=== PATIENT | female | born 1950 | race Caucasian/White ===

== ENCOUNTER → 2017-06-14 | Outpatient (CLI) | payer OTHER ==
[~2017-06-14] MED LIST: ASPI81TA28 PO; DIPH25TA24 PO; ENAL10TA PO; IMD/2 PO; PXL/10 PO; SIMV-151 PO
--- NOTE | 2017-06-15 07:51 | MAMMOGRAPHY REPORT ---
BILATERAL DIGITAL SCREENING MAMMOGRAM TOMOSYNTHESIS WITH CAD: 06/14/2017 CLINICAL HISTORY: Routine screening. Patient has no complaints. TECHNIQUE: Breast tomosynthesis in addition to standard 2D mammography was performed. Current study was also evaluated with a Computer Aided Detection (CAD) system. COMPARISON: Comparison is made to exams dated: 06/13/2016 mammogram, 05/20/2015 mammogram, 04/01/2014 mammogram, 03/28/2013 mammogram, 03/22/2012 mammogram, and 03/21/2011 mammogram - [facility]. BREAST COMPOSITION: There are scattered areas of fibroglandular density in both breasts. FINDINGS: No suspicious masses, calcifications, or areas of architectural distortion are noted in ei ther breast. There has been no significant interval change compared to prior exams. Bilateral benign -appearing calcifications are stable compared to prior exams. IMPRESSION: ACR BI-RADS CATEGORY 2: BENIGN There is no mammographic evidence of malignancy. A 1 year screening mammogram is recommended. The pa tient will receive written notification of the results. Approximately 10% of breast cancers are not detected with mammography. A negative mammographic report should not delay biopsy if a clinically suggestive mass is present. Elyssa Morgan M.D. /:06/14/2017 13:10:41 Pot Puncher: Bryanna HONEYCUTT(Kathy)(Nuzhat)(ODILIA), [facility] letter sent: Normal 1/2 BI-RADS Code: ACR BI-RADS Category 2: Benign
== END | disposition home or self-care (01) ==
LOC: C.MAMM 12:41
PROVIDERS: ATTEND Internal Medicine
DX: Z12.31 Encounter for screening mammogram for malignant neoplasm of breast (principal)

== ENCOUNTER 2023-09-21 14:31 | Inpatient (IN) ==
--- NOTE | 2023-09-21 15:12 | Emergency Department Note ---
Impression & Plan Closed fracture of left hip ED Provider Note Name: NATALYA VAUGHN Age: 73 Sex: Female Arrives Via: Ambulance Informant: Patient ED Provider: Alton Lopez MD Chief Complaint: Left hip pain Impression: As per impressions above Medical Decision Making: Pleasant 73-year-old female arrives for evaluation of acute left hip pain after falling this morning. She did not strike her head and has had no headache or neck pain and she is not on any anticoagulants. NIH is 0 and she is neuro intact. She has significant tenderness palpation of the left lateral anterior thigh. Distal pulses sensation intact. No significant length discrepancy appreciated. Given IV Dilaudid and then some IV fentanyl for pain control. Hip x-ray does reveal femoral neck fracture. Laboratory workup unremarkable. She will need to be hospitalized for management of hip fracture. Hospitalist and orthopedic surgeon consulted. Triage/Nursing Notes reviewed by Me Differential:Fracture, dislocation, rhabdomyolysis, electrolyte imbalance, other injuries, nonmechanical fall, many other pathologies considered Vital Signs: reviewed and remarkable for no significant abnormalities Interventions: Dilaudid 1 mg IV, fentanyl 75 mcg IV, normal saline infusion Labs:ED labs Reviewed by me and remarkable for no significant abnormalities Imaging: X-ray of the left femur as per my interpretation reveals compressed femoral neck fracture mild displacement. X-ray of the pelvis as per my interpretation reveals compressed femoral neck fracture on left X-ray of the chest as per my interpretation reveals some chronic lung disease no overt infiltrate or effusion. Consults:Dr [facility] aware. Dr Je Estrada hospitalist Plan: Disposition: Hospitalization Condition: Good History of Present Illness: 73-year-old female arrives for evaluation of left hip pain. Patient notes she stood up this morning fell over and landed awkwardly. Did not strike her head or neck. She has no neck or headache. Patient does note though that she has left hip pain and left upper thigh pain. Unable to bear weight or lift her legs so she has been crawling around the house this morning. Eventually was able to get to the phone call 911. EMS arrived and placed her in traction and then gave her 8 mg IM morphine. She notes this helped mildly. Oxygen was below after the morphine is put on some nasal cannula O2. Patient states that the pain is essentially returned and she is in a fair amount of discomfort. Denies any lower leg pain. She has no back pain chest pain abdominal pain, syncope or other concerning signs or symptoms. She takes 81 mg aspirin daily no other blood thinners. Patient has no history of bleeding issues. She has no previous history of fractures. Past Medical History: Hypertension, anxiety/depression, dyslipidemia Home Medications:See Below Allergies: No known drug allergy Vitals:Blood Pressure: 166/90, Pulse 88, RR 18, T 36.4C, O2 98% on RA Physical Exam: GENERAL: Patient is uncomfortable appearing and in moderate distress. RESPIRATORY: No dyspnea. Clear to auscultation and equal bilaterally. CARDIOVASCULAR: Regular rate and rhythm.No murmur appreciated. GASTROINTESTINAL: Abdomen soft, non-tender, no peritonitis. EXTREMITIES: Significant tenderness palpation of the left upper thigh with severe pain on range of motion of the left hip or the knee. Distal pulses sensation and movement intact NEUROLOGIC: Alert and oriented. No focal neurologic deficits appreciated SKIN: No rash, no jaundice, no diaphoresis. PSYCH: Appropriate GCS: 15 ED Course: Times/Reassessments: Some difficulty controlling pain but patient is otherwise stable Alton Lopez MD Past Med/Surg History Social History Smoking Status: Never smoker Allergies Allergies Allergy/AdvReac Type Severity Reaction Status Date / Time No Known Allergies Allergy Unknown Verified 06/11/04 09:11 Home Meds Home Medications Medication Instructions Recorded Confirmed aspirin 81 mg capsule 81 mg PO DAILY 09/21/23 09/21/23 atorvastatin 20 mg tablet 20 mg PO DAILY 09/21/23 09/21/23 cholecalciferol (vitamin D3) 25 25 mcg PO DAILY 09/21/23 09/21/23 mcg (1,000 unit) tablet enalapril maleate 5 mg tablet 5 mg PO DAILY 09/21/23 09/21/23 hydrochlorothiazide 12.5 mg tablet 12.5 mg PO DAILY 09/21/23 09/21/23 lorazepam 0.5 mg tablet 0.5 mg PO TID PRN Anxiety 09/21/23 09/21/23 paroxetine HCl 10 mg tablet 10 mg PO DAILY 09/21/23 09/21/23 tolterodine 4 mg capsule,extended 4 mg PO DAILY 09/21/23 09/21/23 release 24 hr Results & Data (ED) Vital Signs Vital Signs - 24 hr 09/21/23 14:35 09/21/23 14:40 09/21/23 15:03 Temperature 36.4 C L Temperature Source Oral Pulse Rate 89 88 Respiratory Rate 18 Respiratory Effort / Characteristics Non-Labored Spontaneous Respiratory Depth Normal Respiratory Pattern Agonal Blood Pressure 166/90 H Blood Pressure Mean 115 Blood Pressure Position Sitting Pulse Oximetry 87 L 87 L Oxygen Delivery Method Room Air Room Air Oxygen Flow Rate Sepsis Recent Fever Within 48 Hours No Sepsis New/Unexplained Change in Mental Status N/A Sepsis Action Taken by Nursing No Action Required Oxygen Flow Rate - Titration 2 Pulse Oximetry Post Tiitration 94 09/21/23 15:20 09/21/23 16:14 09/21/23 16:30 Temperature Temperature Source Pulse Rate 86 87 83 Respiratory Rate 24 14 12 Respiratory Effort / Characteristics Respiratory Depth Respiratory Pattern Blood Pressure 155/88 H 144/82 H 148/81 H Blood Pressure Mean 110 102 103 Blood Pressure Position Pulse Oximetry 95 93 96 Oxygen Delivery Method Nasal Cannula Room Air Nasal Cannula Oxygen Flow Rate 2 2 Sepsis Recent Fever Within 48 Hours Sepsis New/Unexplained Change in Mental Status Sepsis Action Taken by Nursing Oxygen Flow Rate - Titration Pulse Oximetry Post Tiitration 09/21/23 17:00 Temperature Temperature Source Pulse Rate 85 Respiratory Rate 15 Respiratory Effort / Characteristics Respiratory Depth Respiratory Pattern Blood Pressure 119/64 Blood Pressure Mean 82 Blood Pressure Position Pulse Oximetry 96 Oxygen Delivery Method Nasal Cannula Oxygen Flow Rate 2 Sepsis Recent Fever Within 48 Hours Sepsis New/Unexplained Change in Mental Status Sepsis Action Taken by Nursing Oxygen Flow Rate - Titration Pulse Oximetry Post Tiitration Laboratory Data 09/21/23 15:35 09/21/23 15:35 Lab Results 09/21/23 09/21/23 Range/Units 15:35 16:45 WBC 15.68 H (4.8-10.8) K/ul RBC 5.07 (4.20-5.40) M/uL Hgb 15.2 (12.0-16.0) g/dl Hct 44.2 (37.0-47.0) % MCV 87.2 (80.0-100.0) fL MCH 30.0 (25.0-34.0) pg MCHC 34.4 (32.0-36.0) g/dL RDW Std Deviation 43.1 (36.4-46.3) fL RDW Coeff of Erlinda 13.4 (11.5-14.5) % Plt Count 225 (130-400) K/uL MPV 9.0 L (9.4-12.4) fL Immature Gran % (Auto) 0.5 % Neut % (Auto) 90.1 % Lymph % (Auto) 4.0 % [place] % (Auto) 4.8 % Eos % (Auto) 0.3 % Baso % (Auto) 0.3 % Neut # (Auto) 14.14 H (1.40-6.50) K/uL Lymph # (Auto) 0.63 L (1.20-3.40) K/uL [place] # (Auto) 0.75 H (0.11-0.59) K/uL Eos # (Auto) 0.04 (0.00-0.50) K/uL Baso # (Auto) 0.04 (0.00-0.20) K/uL Immature Gran # (Auto) 0.08 (0.01-0.20) K/uL Sodium 138 (136-145) mmol/L Potassium 4.1 (3.5-5.1) mmol/L Chloride 105 (98-107) mmol/L Carbon Dioxide 26 (21-32) mmol/L Anion Gap 7 (3-11) BUN 20 (6-23) mg/dl Creatinine 0.81 (0.6-1.2) mg/dl Est Cr Clr Drug Dosing 62.2 ml/min Est GFR ( Amer) 82.3 ml/min Est GFR (Non-Af Amer) 71.0 ml/min BUN/Creatinine Ratio 24.7 H (10-20) Glucose 125 H (70-99(Fasting)) mg/dl Calcium 9.6 (8.6-10.3) mg/dl Magnesium 2.0 (1.7-2.4) mg/dl Total Creatine Kinase 193 H (26-192) U/L Urine Color Dark Yellow Urine Appearance Clear (Clear) Urine pH 5.0 (4.5-7.5) Ur Specific [place] 1.027 (1.000-1.030) Urine Protein Negative (Negative) Urine Glucose (UA) Negative (Negative) Urine Ketones Negative (Negative) Urine Blood Negative (Negative) Urine Nitrite Negative (Negative) Urine Bilirubin Negative (Negative) Urine Urobilinogen Negative (Negative) Ur Leukocyte Esterase Negative (Negative) Administered Medications Discontinued Medications Fentanyl Citrate (Fentanyl Citrate Pf 100 Mcg/2 Ml Vial) 75 mcg IV NOW STA Stop: 09/21/23 16:24 Last Admin: 09/21/23 16:26 Dose: 75 mcg Documented By: MELINA Hydromorphone HCl (Hydromorphone Inj 1 Mg/Ml Syringe) 1 mg IV NOW STA Stop: 09/21/23 15:10 Last Admin: 09/21/23 15:16 Dose: 1 mg Documented By: CRISTINA Sodium Chloride (Nss) 500 mls @ 999 mls/hr IV .Q31M ONE Stop: 09/21/23 15:39 Last Infusion: 09/21/23 16:48 Dose: Infused Documented By: Admin: 09/21/23 15:17 Dose: 999 mls/hr Documented By: CRISTINA Imaging Data Radiologist's Impression: Chest X-Ray 09/21/23 15:09 SINGLE VIEW CHEST CLINICAL HISTORY: Fall. FINDINGS: An AP supine chest radiograph is obtained. No prior studies are available for comparison at the time of dictation. The heart is enlarged and noting atherosclerotic calcification of the thoracic aorta. The pulmonary vasculature is noncongested. The lungs and pleural spaces are clear. No pneumothorax is seen. The skeletal structures are osteopenic. The bony thorax is grossly intact. IMPRESSION: Cardiomegaly with no active disease in the chest. ACT 112: Negative or not required by law. Electronically signed by: Juan Andersen M.D. 09/21/2023 4:42 PM Femur X-Ray 09/21/23 15:09 XR femur LT 2V routine CLINICAL HISTORY: left femur pain COMPARISON: None FINDINGS: There is an acute displaced left femoral neck fracture. No distal left femoral fracture is noted. No acute fractures are identified within visualized portions of the left hemipelvis. 3.2 cm lucent focus within the femoral head/neck junction. IMPRESSION: 1. Acute displaced left femoral neck fracture. 2. Ill-defined lucent focus within the left femoral head/neck junction. This is likely artifactual or related to the fracture. An underlying osseous lesion cannot be completely excluded. ACT 112: Negative or not required by law. Electronically signed by: Blade Ramos M.D. 09/21/2023 4:22 PM Pelvis X-Ray 09/21/23 15:09 XR pelvis 1-2V routine CLINICAL HISTORY: left hip injury COMPARISON: None FINDINGS: Sacroiliac joints and symphysis pubis are intact. There is acute displaced left femoral neck fracture. There is an ill-defined 3.5 cm lucent focus within the left femoral head/neck junction. This is probably artifactual. No additional lesions are present. There is no proximal right femoral fracture. IMPRESSION: 1. Acute displaced left femoral neck fracture. 2. 3.5 cm ill-defined lucent focus within the left femoral head/neck junction. This is likely artifactual or related to the fracture. However, an underlying osseous lesion cannot be completely excluded. ACT 112: Negative or not required by law. Electronically signed by: Blade Ramos M.D. 09/21/2023 4:21 PM Discharge Plan Visit Data Chief Complaint: Fall Stated Complaint: femur fracture ED Provider: Alton Lopez Discharge Problem: Closed fracture of left hip Forms Stand Alone Forms: My [facility] [place] [employer] Prescriptions Prescriptions: No Action paroxetine HCl 10 mg tablet 10 mg PO DAILY atorvastatin 20 mg Tablet 20 mg PO DAILY enalapril maleate 5 mg Tablet 5 mg PO DAILY tolterodine 4 mg Capsule,Extended Release 24hr 4 mg PO DAILY lorazepam 0.5 mg Tablet 0.5 mg PO TID PRN (Reason: Anxiety) cholecalciferol (vitamin D3) 25 mcg (1,000 unit) Tablet 25 mcg PO DAILY hydrochlorothiazide 12.5 mg tablet 12.5 mg PO DAILY aspirin 81 mg Capsule 81 mg PO DAILY Referrals Referrals: Nadira Ball MD [Primary Care Provider] - Discharge Problem: Closed fracture of left hip Qualifiers: Encounter type: initial encounter Qualified Code(s): S72.002A - Fracture of unspecified part of neck of left femur, initial encounter for closed fracture
[2023-09-21] MEDS: HYDROmorphone INJ 1 MG/ML SYRINGE IV STA (15:16)
[2023-09-21] MEDS: SODIUM CHLORIDE 0.9% 500 ML IV ONE (15:17)
[2023-09-21 15:53] LABS: Hematocrit (blood only) 44.2 % (37.0-47.0); Hemoglobin 15.2 g/dl (12.0-16.0); Mean Corpuscular Hgb Conc 34.4 g/dL (32.0-36.0); Mean Corpuscular Volume 87.2 fL (80.0-100.0); Platelet Count 225 K/uL (130-400); RDW Coefficient of Variation 13.4 % (11.5-14.5); RDW Standard Deviation 43.1 fL (36.4-46.3); Red Blood Count 5.07 M/uL (4.20-5.40); White Blood Count 15.68 K/ul (4.8-10.8)
[2023-09-21 16:06] LABS: BUN Creatinine Ratio 24.7 (10-20); Calcium 9.6 mg/dl (8.6-10.3); Creatinine Clr Calc Pharmacy 62.2 ml/min; Est GFR (African American) 82.3 ml/min; Potassium 4.1 mmol/L (3.5-5.1)
--- NOTE | 2023-09-21 16:23 | XRay Report ---
XR pelvis 1-2V routine CLINICAL HISTORY: left hip injury COMPARISON: None FINDINGS: Sacroiliac joints and symphysis pubis are intact. There is acute displaced left femoral ne ck fracture. There is an ill-defined 3.5 cm lucent focus within the left femoral head/neck junction. This is probably artifactual. No additional lesions are present. There is no proximal right femoral f racture. IMPRESSION: 1. Acute displaced left femoral neck fracture. 2. 3.5 cm ill-defined lucent focus within the left femoral head/neck junction. This is likely artifac tual or related to the fracture. However, an underlying osseous lesion cannot be completely excluded. ACT 112: Negative or not required by law. Electronically signed by: Blade Ramos M.D. 09/21/2023 4:21 PM
--- NOTE | 2023-09-21 16:23 | XRay Report ---
XR femur LT 2V routine CLINICAL HISTORY: left femur pain COMPARISON: None FINDINGS: There is an acute displaced left femoral neck fracture. No distal left femoral fracture is noted. No acute fractures are identified within visualized portions of the left hemipelvis. 3.2 cm l ucent focus within the femoral head/neck junction. IMPRESSION: 1. Acute displaced left femoral neck fracture. 2. Ill-defined lucent focus within the left femoral head/neck junction. This is likely artifactual or related to the fracture. An underlying osseous lesion cannot be completely excluded. ACT 112: Negative or not required by law. Electronically signed by: Blade Ramos M.D. 09/21/2023 4:22 PM
[2023-09-21] MEDS: fentaNYL citrate PF 100 MCG/2 ML VIAL IV STA (16:26)
[2023-09-21 16:31] LABS: Basophils # (auto) 0.04 K/uL (0.00-0.20); Basophils % (auto) 0.3 %; Eosinophils # (auto) 0.04 K/uL (0.00-0.50); Eosinophils % (auto) 0.3 %; Immature Granulocytes # (auto) 0.08 K/uL (0.01-0.20); Immature Granulocytes % (auto) 0.5 %; Lymphocytes # (auto) 0.63 K/uL (1.20-3.40); Monocytes # (auto) 0.75 K/uL (0.11-0.59); Monocytes % (auto) 4.8 %; Neutrophils # (auto) 14.14 K/uL (1.40-6.50); Neutrophils % (auto) 90.1 %
--- NOTE | 2023-09-21 16:43 | XRay Report ---
SINGLE VIEW CHEST CLINICAL HISTORY: Fall. FINDINGS: An AP supine chest radiograph is obtained. No prior studies are available for comparison at the time of dictation. The heart is enlarged and noting atherosclerotic calcification of the thoraci c aorta. The pulmonary vasculature is noncongested. The lungs and pleural spaces are clear. No pneumo thorax is seen. The skeletal structures are osteopenic. The bony thorax is grossly intact. IMPRESSION: Cardiomegaly with no active disease in the chest. ACT 112: Negative or not required by law. Electronically signed by: Juan Andersen M.D. 09/21/2023 4:42 PM
--- NOTE | 2023-09-21 16:58 | History & Physical Report ---
Date of Service September 21, 2023 Assessment & Plan (1) Closed fracture of left hip: Plan: This is a 73-year-old female with PMH of hypertension, depression with anxiety, hyperlipidemia, hypothyroidism, prediabetes and other medical problems listed below who presents from home after a fall and was found to have an acute displaced left femoral neck fracture. Mechanical fall at home today Femur XR with acute displaced left femoral neck fracture EKG with sinus rhythm with occasional PVCs, non- specific T wave abn in lateral leads, no acute ST changes CXR with cardiomegaly with no active disease in the chest ED provider discussed with Dr. Johns, who plans to take patient to OR tomorrow Revised cardiac risk index with 0 points or class 1 risk IV fluids, pain control, pre-op abx, anesthesia and ortho spine consulted per hip fracture protocol (2) HTN (hypertension): Plan: Chronic, stable. Hold HCTZ in AM. Continue enalapril (3) Depression with anxiety: Plan: Chronic, stable. Continue paroxetine, rarely uses her home PRN ativan (4) Hyperlipidemia: Plan: Continue statin (5) Hypothyroidism: Plan: Continue levothyroxine DVT Ppx: SQ heparin x 1 this evening, then hold on chemical VTE for OR Code status:FULL PCP: Hollie Dispo: Admitted to med/surg Patient seen in collaboration with Dr. Wooten. Please see addendum. I spent a total of 70 minutes coordinating, documenting, and providing care for this patient excluding time spent in the performance of separately billed services. History of Present Illness Chief Complaint: Fall Primary Care Provider: Nadira Ball MD This is a 73-year-old female with PMH of hypertension, depression with anxiety, hyperlipidemia, hypothyroidism, prediabetes and other medical problems listed below who presents from home after a fall. After standing up this morning, patient fell over and landed on her left side. Denies any head trauma or LOC. Was unable to bear weight on her leg and resorted to crawling around on the floor. Then alerted her and arrived here by EMS. Was initially in a lot of pain but improved with IV analgesics in the ED and is now comfortable at rest. Denies any history of bleeding issues. Denies previous history of f ractures. Allergies Allergy/AdvReac Type Severity Reaction Status Date / Time No Known Allergies Allergy Unknown Verified 06/11/04 09:11 Home Medications Medication Instructions Recorded Confirmed Type aspirin 81 mg capsule 81 mg PO DAILY 09/21/23 09/21/23 History atorvastatin 20 mg tablet 20 mg PO DAILY 09/21/23 09/21/23 History cholecalciferol (vitamin D3) 25 25 mcg PO DAILY 09/21/23 09/21/23 History mcg (1,000 unit) tablet enalapril maleate 5 mg tablet 5 mg PO DAILY 09/21/23 09/21/23 History hydrochlorothiazide 12.5 mg tablet 12.5 mg PO DAILY 09/21/23 09/21/23 History lorazepam 0.5 mg tablet 0.5 mg PO TID PRN Anxiety 09/21/23 09/21/23 History paroxetine HCl 10 mg tablet 10 mg PO DAILY 09/21/23 09/21/23 History tolterodine 4 mg capsule,extended 4 mg PO DAILY 09/21/23 09/21/23 History release 24 hr Past Med/Surg History Medical History Hypothyroidism Depression with anxiety HTN (hypertension) Hyperlipidemia Surgical History S/P ear surgery S/P tonsillectomy and adenoidectomy Hx of appendectomy Family History Other Cancer Diabetes Stroke Social History Smoking Status: Never smoker Hx Alcohol Use: No Hx Substance Use: No Review of Systems Review of Systems: At least ten systems reviewed and negative except as noted in the HPI. Physical Exam Physical Exam: Please see Dr. Wooten's addendum for physical exam. Results & Data Results & Data Vital Signs (Past 12 Hours) Vital Signs Temp Pulse Resp BP Pulse Ox O2 Del Method O2 Flow Rate 09/21/23 16:14 87 14 144/82 H 93 Room Air 09/21/23 15:20 86 24 155/88 H 95 Nasal Cannula 2 09/21/23 15:03 88 09/21/23 14:40 87 L Room Air 09/21/23 14:35 36.4 C L 89 18 166/90 H 87 L Room Air Laboratory Results Short CBC 09/21/23 Range/Units 15:35 WBC 15.68 H (4.8-10.8) K/ul Hgb 15.2 (12.0-16.0) g/dl Hct 44.2 (37.0-47.0) % Plt Count 225 (130-400) K/uL BMP 09/21/23 15:35 Sodium 138 Potassium 4.1 Chloride 105 Carbon Dioxide 26 BUN 20 Creatinine 0.81 Glucose 125 H Calcium 9.6 Cardiac Enzymes 09/21/23 Range/Units 15:35 Total Creatine Kinase 193 H (26-192) U/L Urine 09/21/23 Range/Units 16:45 Urine Color Dark Yellow Urine Appearance Clear (Clear) Urine pH 5.0 (4.5-7.5) Ur Specific [place] 1.027 (1.000-1.030) Urine Protein Negative (Negative) Urine Glucose (UA) Negative (Negative) Diagnostic Findings Chest X-Ray 09/21/23 15:09 SINGLE VIEW CHEST CLINICAL HISTORY: Fall. FINDINGS: An AP supine chest radiograph is obtained. No prior studies are available for comparison at the time of dictation. The heart is enlarged and noting atherosclerotic calcification of the thoracic aorta. The pulmonary vasculature is noncongested. The lungs and pleural spaces are clear. No pneumothorax is seen. The skeletal structures are osteopenic. The bony thorax is grossly intact. IMPRESSION: Cardiomegaly with no active disease in the chest. ACT 112: Negative or not required by law. Electronically signed by: Juan Andersen M.D. 09/21/2023 4:42 PM Femur X-Ray 09/21/23 15:09 XR femur LT 2V routine CLINICAL HISTORY: left femur pain COMPARISON: None FINDINGS: There is an acute displaced left femoral neck fracture. No distal left femoral fracture is noted. No acute fractures are identified within visua lized portions of the left hemipelvis. 3.2 cm lucent focus within the femoral head/neck junction. IMPRESSION: 1. Acute displaced left femoral neck fracture. 2. Ill-defined lucent focus within the left femoral head/neck junction. This is likely artifactual or related to the fracture. An underlying osseous lesion cannot be completely excluded. ACT 112: Negative or not required by law. Electronically signed by: Blade Ramos M.D. 09/21/2023 4:22 PM Pelvis X-Ray 09/21/23 15:09 XR pelvis 1-2V routine CLINICAL HISTORY: left hip injury COMPARISON: None FINDINGS: Sacroiliac joints and symphysis pubis are intact. There is acute displaced left femoral neck fracture. There is an ill-defined 3.5 cm lucent focus within the left femoral head/neck junction. This is probably artifactual. No additional lesions are present. There is no proximal right femoral fracture. IMPRESSION: 1. Acute displaced left femoral neck fracture. 2. 3.5 cm ill-defined lucent focus within the left femoral head/neck junction. This is likely artifactual or related to the fracture. However, an underlying osseous lesion cannot be completely excluded. ACT 112: Negative or not required by law. Electronically signed by: Blade Ramos M.D. 09/21/2023 4:21 PM ECG Additional Comments: EKG reviewed - sinus rhythm with occasional PVCs, non- specific T wave abn in lateral leads, no acute ST changes Supervising Physician Co-Signing Physician Notes Patient is a 73-year-old female with history of hypertension, hyperlipidemia, hypothyroidism and other medical problems presents with left hip pain after sustaining a fall at home. Patient denies any weakness, numbness or tingling. She also denies any head trauma, loss of consciousness. She reports having a neck spasm, and was trying to get out of the chair and slipped resulting in a fall on the floor. Please review HPI for complete liters of presentation. Blood work showed leukocytosis 15.6 K, glucose 125, CK1 93. Imaging studies showed acute displaced left femoral neck fracture. EKG showed sinus rhythm with PVCs, nonspecific T wave abnormality. Physical Exam: Vitals signs as noted above General Appearance:Obese, no apparent distress Head: normocephalic, Atraumatic Eyes: normal inspection, EOMI Neck: supple, Trachea midline Respiratory/Chest: Normal breath sounds, CTA, No accessory muscle use Cardiovascular: S1, S2, No murmur Abdomen/GI:Soft, Non tender, Bowel sounds present Extremities/Musculoskeletal:normal inspection, no edema, Left hip tender, decreased ROM Neurologic/Psych:AAOX3, grossly no focal neurological deficits Skin: normal color, warm Acute displaced left femoral neck fracture Secondary to mechanical fall Pain control, fall precautions Orthopedics consulted N.p.o. after midnight for possible procedure tomorrow Will consult PT OT when appropriate Bowel regimen to prevent constipation Leukocytosis likely reactive I personally interviewed and examined at bedside. Patient's care is coordinated with Lois Johns PA-C. I have reviewed the advanced practitioner's documentation, and I agree with, and take responsibility for that plan of care. Please refer to the documentation above for details of patient's presentation and for discussion of other issues. I spent a total of28 minutes coordinating, documenting, and providing care for this patient excluding time spent in the per formance of separately billed services. (1) Closed fracture of left hip Encounter type: initial encounter Qualified Code(s): S72.002A - Fracture of unspecified part of neck of left femur, initial encounter for closed fracture
[2023-09-21 17:06] LABS: Appearance Urine Clear (Clear); Bilirubin Urine Negative (Negative); Blood Urine Negative (Negative); Color Urine Dark Yellow; Glucose Urine UA Negative (Negative); Ketones Urine Negative (Negative); Leukocyte Esterase Urine Negative (Negative); Nitrite Urine Negative (Negative); Protein Urine Negative (Negative); Specific Gravity Urine 1.027 (1.000-1.030); Urobilinogen Urine Negative (Negative)
[2023-09-21] MEDS: SODIUM CHLORIDE 0.9% 1,000 ML IV SCH (18:11)
[2023-09-21] MEDS ORDERED: ONDANSETRON INJ 2 MG/ML 2 ML VIAL IV PRN ×2 (20:39)
[2023-09-21] MEDS ORDERED: NALOXONE HCL 0.4 MG/1 ML VIAL/CARP IV PRN (20:39)
[2023-09-21] MEDS ORDERED: ACETAMINOPHEN 325 MG TAB PO PRN (20:39)
[2023-09-21] MEDS ORDERED: TRANEXAMIC ACID IV ONE (20:40)
[2023-09-21] MEDS ORDERED: SODIUM CHLORIDE 0.9% IV ONE (20:40)
[2023-09-21] MEDS ORDERED: ceFAZolin 2000MG 2,000 MG/15 ML SYR IV ONE (20:40)
[2023-09-21] MEDS: HEPARIN SOD 5,000 UNIT/0.5 ML VIAL SQ ONE (21:09)
[2023-09-21] MEDS: oxyCODONE HCL IR 5 MG TAB (IMMEDIATE RELEASE) PO PRN (21:36)
[2023-09-21] MEDS: LORazepam 0.5 MG TAB PO PRN (21:36)
[2023-09-21] MEDS: HYDROmorphone INJ 0.5 MG/0.5 ML SYR IV PRN (22:27)
[2023-09-22 06:42] LABS: Hematocrit (blood only) 38.2 % (37.0-47.0); Hemoglobin 12.5 g/dl (12.0-16.0); Mean Corpuscular Hemoglobin 29.9 pg (25.0-34.0); Mean Corpuscular Hgb Conc 32.7 g/dL (32.0-36.0); Mean Corpuscular Volume 91.4 fL (80.0-100.0); Mean Platelet Volume 9.4 fL (9.4-12.4); Platelet Count 195 K/uL (130-400); RDW Coefficient of Variation 13.8 % (11.5-14.5); RDW Standard Deviation 46.6 fL (36.4-46.3); Red Blood Count 4.18 M/uL (4.20-5.40); White Blood Count 12.38 K/ul (4.8-10.8)
--- OUTSIDE RECORDS SUMMARY | 2023-09-22 06:50 | External Medical Summary | Summary of Care ---
Author Name Unknown Organization [facility] Address [address] [facility] [place] [address] Phone [phone] Care Team Providers Care Addictions Counselor Assistant Name Role Phone Salomon Ball MD Primary Care Provider + Reason for Visit * Reason Comments Follow Up Pt here for 1 month f/u for arms. Pt is using ointment prescribed and feels it is working well. Encounter Details Date Type Department Care Team ([facility] st Contact Info) Description 09/19/2023 4:20 PM EST Office Visit Dermatology [address] [address] Bib Pena PA-C [address] [place] [id number] Dermatitis*; LSC (lichen simplex chronicus); Pruritus Allergies No known active allergiesdocumented as of this encounter (statuses as of 09/19/2023) Medications Medication Sig Dispensed Refills Start Date End Date Status LORAZEPAM 0.5 MG PO TABSIndications: Depressive disorder, not elsewhere classified One pill by mouth 3 times a day as needed for anxiety 90 0 08/28/2008 Active ASPIRIN EC 81 MG PO TBEC Take one pill daily 100 Tab 3 02/24/2014 Active Cholecalciferol (VITAMIN D) 1000 units Tablet Take 1 Tablet by mouth in the morning. 0 Active fluorouracil (EFUDEX) 5 % creamIndications :Actinic keratosis,[place] us cell carcinoma in situ Start 03/19/20: apply 2x daily to entire tops of hands until derm appointment on 04/09/20 7:20am 40 g 1 03/12/2020 Active Additional Information Patient not taking.Reported on 01/11/2023 Tolterodine Tartrate ER 4 MG Oral Capsule Extended Release 24 Hour (Detrol LA)Indications:U rinary incontinence, unspecified type Take 1 Capsule by mouth in the morning. 30 Capsule 0 08/11/2022 Active Atorvastatin Calcium 20 MG Oral Tablet (Lipitor)Indicat ions:Hyperlipide leah LDL goal <130 TAKE ONE TABLET BY MOUTH EVERY MORNING 100 Tablet 2 09/28/2022 4 Active PARoxetine HCl 10 MG Oral Tablet (pAXil)Indicatio ns:Depression with anxiety TAKE ONE TABLET BY MOUTH EVERY MORNING 100 Tablet 2 09/28/2022 4 Active Enalapril Maleate 5 MG Oral Tablet (Vasotec) Take 1 Tablet by mouth in the morning. With HCTZ. 90 Tablet 1 05/02/2023 Active hydroCHLOROthiaz xi 12.5 MG Oral Tablet (Hydrodiuril) Take 1 Tablet by mouth in the morning. With enalapril. 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 Depression with anxiety Hyperlipidemia LDL goal <130 documented as of this encounter (statuses as of 09/19/2023) Resolved Problems Problem Noted Date Diagnosed Date Resolved Date HTN, GOAL BELOW 140/90 06/24/200903/29 Overview: Modified per HTN protocol #16. HTN, goal below 140/90 06/24/200904/06 Overview: Modified per HTN protocol #16. Tension headache 07/06/2006 04/06/2017 ROTATOR CUFF SYND NOS 01/09/20042016 HYPERTENSION NOS 06/25/2009 Overview: Modified per HTN protocol #16. Anxiety states 02/24/2014 Overview: ICD-10 update of inactive term Anxiety states 09/29/2016 Overview: ICD-10 update of inactive term Major depressive disorder Overview: ICD-10 update of inactive term HTN, goal to be determined 1 08/25/2008 Overview: Modified per HTN protocol #16. Dyslipidemia, goal to be determined 08/16/2013 Hypothyroid 09/29/2016 HTN, goal below 140/80 08/16 HTN, goal below 140/90 04/06 documented as of this encounter (statuses as of 09/19/2023) Immunizations Name Administration Dates Next Due COVID-19 mRNA, LNP-s, No Pre serve, 2-Dose Series (Pfizer) 06/10/2021,10/15/2020,09/17/2020 Pneumococcal Conjugate Vacc, 13 Valent (Prevnar) 03/24/2016 Pneumococcal Polysaccharide PPV23 (Pneumovax) 08/16/2013,01/03/2006 TDAP (age 10 and older)(Boostrix) 11/04/2021 TDAP (age 11 and older)(Adacel) 12/30/2010 12/30/2020 Zoster Vaccine Recombinant (Shingrix) 04/22/2021 ,02/10/2021 documented as of this encounter Social History Tobacco Use Types Packs/Day Years Used Date Smoking Tobacco: Never Smokeless Tobacco: Never Alcohol Use Standard Drinks/Week Comments No 0 (1 standard drink = 0.6 oz pur e alcohol) PHQ-2 Answer Date Recorded PHQ-2 Score 0 01/31/2020 Hunger Vital Sign Answer Date Recorded Within the past 12 months, y ou worried that your food would run out before you got the money to buy more. Never true 08/13/19 21 Within the past 12 months, t he food you bought just didn't last and you didn't have money to get more. Never true 08/13/2020 Sex and Gender Information Value Date Recorded Sex Assigned at Female 04/18/2019 12:41 PM EDT Gender Identity Female 04/18/2019 12:41 PM EDT Sexual Orientation Straight 12/03/2021 5: 56 PM EDT Sexual Orientation Choose not to disclose 2021 5:56 PM EDT Job Start Date Occupation Industry Not on file Not on file Not on file documented as of this encounter Progress Notes * Bib Pena PA-C - 09/19/2023 4:16 PM EST SUBJECTIVE: History of Present Illness: Marissa Lewis is a 73 year old female seen today for follow up of neurodermatitis/lichen simplex chronicus. Patient notes the itching has improved, but continues to flare off and on. Worse at night. Itching can be all over her body. Taking benadryl at bedtime. Does not like the consistency of c lobetasol ointment. 08/22/2023 (in office) REVIEW OF SYSTEMS: SKIN: No other new or changing moles. HEME/LYMPH: No new or enlarging lumps or bumps. CONSTITUTIONAL: No nausea, vomiting, fevers, chills, diarrhea. No recent unintended weight loss, night sweats, appetite or malaise. SKIN CANCER HX: Squamous cell carcinoma in situ (Efudex R dorsal hand 03/2020) MEDICA TIONS: Current Outpatient Medications Medication Sig Dispense Refill LORAZEPAM 0.5 MG PO TABS One pill by mouth 3 times a day as needed for anxiety 90 0 ASPIRIN EC 81 MG PO TBEC Take one pill daily 100 Tab 3 Cholecalciferol (VITAMIN D) 1000 units Tablet Take 1 Tablet by mouth in the morning. fluorouracil (EFUDEX) 5 % cream Start 03/19/20: apply 2x daily to entire tops of hands until derm appointment on 04/09/20 7:20am (Patient not taking: Reported on 01/11/2023) 40 g 1 Tolterodine Tartrate ER 4 MG Oral Capsule Extended Release 24 Hour (Detrol LA) Take 1 Capsule by mouth in the morning. 30 Capsule 0 Atorvastatin Calcium 20 MG Oral Tablet (Lipitor) TAKE ONE TABLET BY MOUTH EVERY MORNING 100 Tablet 2 PARoxetine HCl 10 MG Oral Tablet (pAXil) TAKE ONE TABLET BY MOUTH EVERY MORNING 100 Tablet 2 Enalapril Maleate 5 MG Oral Tablet (Vasotec) Take 1 Tablet by mouth in the morning. With HCTZ. 90 Tablet 1 hydroCHLOROthiazide 12.5 MG Oral Tablet (Hydrodiuril) Take 1 Tablet by mouth in the morning. With enalapril. 90 Tablet 1 Clobetasol Propionate 0.05 % External Ointment (Temovate) Apply to the arms twice daily as needed 60 g 2 No current facility-administered medications for this visit. ALLERG IES: Patient has no known allergies. OBJECT IRIS: GEN: Healthy, alert, no distress, appears oriented, pleasant, and cooperative. SKIN: Detailed exam of face including lids and lips, bilateral upper ext. (arm, hand, fingers), andbilateral lower ext. (leg, foot, toes) completed and are normal except: A. Arms/legs with xerosis and a few excoriations ASSESS MENT/PLAN: A. Neurodermatitis/lichen simplex chronicus- improved significantly. No primary dermatitis appreciated -will check labs and a chest x-ray for systemic cause of pruritus. CBC, CMP, TSH and SPEP. -do not pick/rub/scratch. Can start zyrtec 10 mg daily and can continue benadryl QHS as desired. -can apply clobetasol cream twice daily for 1-2 weeks as needed. SER. Moisturize daily Follow-up: 6 months or sooner PRN Patient alone today. Photo(s) taken, pt verbally consented to having photo(s) taken. Contact patient via cell phone Ok to leave results on message: Yes Patient Phone Numbers Applicable photos (if any) and chart reviewed by Dr. Nikita Ho Presumed diagnoses, expected natural histories, and management options discussed with the patient at length. Questions were addressed and anticipatory guidance provided. They were instructed to contact me if additional questions, concerns, or problems develop in the interim. -There were no barriers to learning and no other pain was related to today's visit. The patient and/or person accompanying patient demonstrates understanding of the visit and treatment. Eleonora Pena PA-C 09/19/2023 4:16 PM Ref: SELF[[id number]] NO STREET ADDRESS AVAILABLE None (office) None (fax) PCP: SALOMON BALL [address] [place] [address] [phone] documented in this encounter Nursing Notes * Linnette Torres LPN - 09/19/2023 4:03 PM EST Patient identified by full name and date of Chief Complaint Patient presents with Follow Up Pt here for 1 month f/u for arms. Pt is using ointment prescribed and feels it is working well. documented in this encounter Plan of Treatment Upcoming Encounters Date Type Department Care Team (Late st Contact Info) Description 12/20/2023 9:20 AM EDT Office Visit General Internal Medicine [facility] [place] [address] [place] [address] Salomon Ball MD [address] [facility] [place] [address] 03/20/2024 11:20 AM EDT Office Visit Dermatology [facility] [address] [place] [phone] Bib Pena PA-C [address] [place] [phone] Pending Results Name Type Priority Associated Diagnoses Date /Time SERUM PROTEIN ELECTROPHORESIS REFLEX PROFILE Lab Routine Hx of nonmelanoma skin cancer Dermatitis LSC (lichen simplex chronicus) 09/19/2023 4:39 PM EST CBC WITH WBC DIFFERENTIAL Lab Routine Hx of nonmelanoma skin cancer Dermatitis LSC (lichen simplex chronicus) 09/19/2023 4:39 PM EST COMPREHENSIVE METABOLIC PANEL Lab Routine Hx of nonmelanoma skin cancer Dermatitis LSC (lichen simplex chronicus) 09/19/2023 4:39 PM EST TSH WITH FREE T4 IF INDICATED Lab Routine Hx of nonmelanoma skin cancer Dermatitis LSC (lichen simplex chronicus) 09/19/2023 4:39 PM EST Scheduled Orders Name Type Priority Associated Diagnoses Order Schedule SERUM PROTEIN ELECTROPHORESIS REFLEX PROFILE Lab Routine Dermatitis LSC (lichen simplex chronicus) Expected: 09/19/2023, Expires: 09/19/2024 CBC WITH WBC DIFFERENTIAL Lab Routine Dermatitis LSC (lichen simplex chronicus) Expected: 09/19/2023, Expires: 09/19/2024 COMPREHENSIVE METABOLIC PANEL Lab Routine Dermatitis LSC (lichen simplex chronicus) Expected: 09/19/2023, Expires: 09/19/2024 TSH WITH FREE T4 IF INDICATED Lab Routine Dermatitis LSC (lichen simplex chronicus) Expected: 09/19/2023, Expires: 09/19/2024 XR CHEST 2 VIEWS Medical Imaging Routine Dermatitis LSC (lichen simplex chronicus) Ordered: 09/19/2023 Health Maintenance Due Date Last Done Comments Depression Screening 01/30/2021 01/31/2020 DXA Scan 09/23/2022 09/23/2015 COVID-19 Vaccine ( season) 2023 06/05/2022, 11/30/2021, 06/10/2021, Additional history exists Influenza Vaccine (FLU shot) (#1) 2023 GFR 06/15/2024 06/15/2023, 05/07, 02/10/2021, Additional history exists HbA1c 06/15/2024 06/15/2023, 05/07, 02/10/2021, Additional history exists Albumin/Creatinine Ratio 06/15/2026 023, 01/31/2020, 10/05/2017, Additional history exists DTaP,Tdap,and Td Vaccines (3 - Td or Tdap) 11/05/2031 11/04/2021, 12/30/2010, 02/21/2000 Colonoscopy Discontinued 08/24/2012, 08/24/2012 Pneumococcal Vaccine: 65+ Years Completed 03/24/2016, 08/16/2013, 01/03/2006 Zoster Vaccines Completed 04/22/2021, 02/10/2021 Colorectal Cancer Screening Discontinued Fecal Occult Blood Test Discontinued 04/11/20, 04/11/2023, 04/01/2000, Additional history exists Cologuard Discontinued GARDASIL-HPV IMMUNIZATION SERIES Aged Out No longer eligible based on patient's age to complete this topic Hepatitis B Aged Out No longer eligi ble based on patient's age to complete this topic MENINGOCOCCAL (MENACTRA/MENVEO) Aged Out No longer eligible based on patient's age to complete this topic Sigmoidoscopy Discontinued documented as of this encounter Medical Devices Not on filedocumented as of this encounter Visit Diagnoses Diagnosis Dermatitis- Primary Contact dermatitis and other eczema, due to unspecified cause LSC (lichen simplex chronicus) Lichenification and lichen simplex chronicus Pruritus Unspecified pruritic disorder documented in this encounter Care Teams Addictions Counselor Assistant Relationship Specialty Start Date End Date Salomon Ball MD [address] [place] [address] PCP - General 08/31/07 documented as of this encounter
--- OUTSIDE RECORDS SUMMARY | 2023-09-22 06:50 | External Medical Summary ---
Author Name Unknown Address Unknown Organization [id number]:[facility] [place] - [address] [place] [address] Laboratory Report Ordering Provider Test Date Status STAR MACARIO 09/19/2023 16:39:18 Final Observation Date Value Abnormality Reference (Units) Status PARAPROTEIN NORMAL/ABNORMAL 09/19/2023 16:39:18 Abnormal Abnormal Normal Final Immunofixation for Serum or Plasma 09/19/2023 16:39:18 Abnormal, a low-level monoclonal IgG kappa paraprotein is present. Final Performing Location [facility] [place] - [address] [place] [address]
--- OUTSIDE RECORDS SUMMARY | 2023-09-22 06:50 | External Medical Summary | Summary of Care ---
Author Name Unknown Organization [facility] Address [address] [facility] [place] [address] Phone [phone] Care Team Providers Care Textile Machine Maintenance Mechanic Name Role Phone Nadira Ball MD Primary Care Provider + Reason for Visit * Reason Onset Date Comments Health Maintenance 08/03/2023 Encounter Details Date Type Department Care Team (Late st Contact Info) Description 08/03/2023 Telephone General Internal Medicine [facility] [address] [facility] [address] [address] Nadira Ball MD [address] [facility] [place] [address] Health Maintenance Allergies No known active allergiesdocumented as of this encounter (statuses as of 08/03/2023) Medications Medication Sig Dispensed Refills Start Date End Date Status LORAZEPAM 0.5 MG PO TABSIndications:Dep ressive disorder, not elsewhere classified One pill by mouth 3 times a day as needed for anxiety 90 0 08/28/2008 Active BETAMETHASONE DIPROPIONATE 0.05 % EX CREAIndications:Urt icaria Apply to affected area twice a day 1 Tube 3 07/04/2011 Active ASPIRIN EC 81 MG PO TBEC Take one pill daily 100 Tab 3 02/24/2014 Active Cholecalciferol (VITAMIN D) 1000 units Tablet Take 1 Tablet by mouth in the morning. 0 Active fluorouracil (EFUDEX) 5 % creamIndications:Ac tinic keratosis,Squamous cell carcinoma in situ Start 03/19/20: apply 2x daily to entire tops of hands until derm appointment on 04/09/20 7:20am 40 g 1 03/12/2020 Active Additional Information Patient not taking.Reported on 01/11/2023 Tolterodine Tartrate ER 4 MG Oral Capsule Extended Release 24 Hour (Detrol LA)Indications:Urin velia incontinence, unspecified type Take 1 Capsule by mouth in the morning. 30 Capsule 0 08/11/2022 Active Triamcinolone Acetonide 0.1 % External Cream (Aristocort) Apply to the arms twice daily for 1-2 weeks as needed for bites 80 g 0 01/11/2023 Active Atorvastatin Calcium 20 MG Oral Tablet (Lipitor)Indication s:Hyperlipidemia LDL goal <130 TAKE ONE TABLET BY MOUTH EVERY MORNING 100 Tablet 2 09/28/2022 10/01/2023 Active PARoxetine HCl 10 MG Oral Tablet (pAXil)Indications: Depression with anxiety TAKE ONE TABLET BY MOUTH EVERY MORNING 100 Tablet 2 09/28/2022 10/01/2023 Active Enalapril Maleate 5 MG Oral Tablet (Vasotec) Take 1 Tablet by mouth in the morning. With HCTZ. 90 Tablet 1 05/02/2023 Active hydroCHLOROthiazide 12.5 MG Oral Tablet (Hydrodiuril) Take 1 Tablet by mouth in the morning. With enalapril. 90 Tablet 1 05/02/2023 Active documented as of this encounter (statuses as of 08/03/2023) Active Problems Problem Noted Date Diagnosed Date [...] as of this encounter (statuses as of 08/03/2023) Resolved Problems Problem Noted Date Diagnosed Date [...] as of this encounter (statuses as of 08/03/2023) Immunizations Name Administration Dates Next Due COVID-19 [...] on file documented as of this encounter Miscellaneous Notes * Telephone Encounter - Anabella Chao LPN - 08/03/2023 11:31 AM EST Care Gaps Comprehensive Care Outreach Last Office/Telemedicine Visit: 06/15/2023 (in office), Visit date not found (telemedicine) Next Office Visit: 12/20/2023 Hemoglobin AIC Results: Lab Results Component Value Date/Time HEMOGLOBIN A1C - [facility] 6.2 (H) 06/15/2023 11:07 AM HEMOGLOBIN A1C - [facility] 5.9 (H) 05/20/2022 10:09 AM HEMOGLOBIN A1C - [facility] 6.0 (H) 02/10/2021 09:37 AM HEMOGLOBIN A1C - [facility] 5.6 09/29/2016 09:33 AM HEMOGLOBIN A1C - [facility] 5.8 09/11/2015 01:04 PM HEMOGLOBIN A1C - [facility] 5.8 01/04/2012 09:03 AM Reviewed Health Maintenance below: Health Maintenance Topic Date Due Depression Screening 01/30/2021 DXA Scan 09/23/2022 Influenza Vaccine (FLU shot) (1) Never done COVID-19 Vaccine ( season) 2023 dexa Was scheduled today and cancelled awv Care Gap Outreach Action Taken: Left message documented in this encounter Plan of Treatment Upcoming Encounters Date Type Department Care Team (Late st Contact Info) Description 12/20/2023 9:20 AM EDT Office Visit General Internal Medicine [address] [facility] [place] [address] Nadira Ball MD [address] [facility] [place] [address] 01/16/2024 8:20 AM EDT Office Visit Dermatology [facility] [address] [place] [phone] Bib Pena PA-C [address] [place], [place] [phone] Health Maintenance Due Date Last Done Comments [...] Screening Discontinued Fecal Occult Blood Test Discontinued 04/11/20 23, 04/01/2000, 03/03/1999 Cologuard Discontinued GARDASIL-HPV IMMUNIZATION SERIES Aged Out [...] Not on filedocumented as of this encounter Care Teams Textile Machine Maintenance Mechanic Relationship Specialty Start Date End Date Nadira Ball MD [address] [place] [address] PCP - General 08/31/07 documented as of this encounter
--- OUTSIDE RECORDS SUMMARY | 2023-09-22 06:50 | External Medical Summary | Summary of Care ---
Author Name Unknown Organization [facility] Address [address] [facility] [place] [address] Phone [phone] Care Team Providers Care Entry Level Account Executive Name Role Phone Salomon Ball MD Primary Care Provider + Reason for Visit * Reason Comments Rash Patient presents tod for rash on arms. Very itchy and sore. Encounter Details Date Type Department Care Team ([facility] Contact Info) Description 08/22/2023 4:00 PM EST Office Visit Dermatology [facility] [address] [place] [address] Bib Pena PA-C [address] [place] [address] [phone] Dermatitis*; LSC (lichen simplex chronicus) Allergies No known active allergiesdocumented as of this encounter (statuses as of 08/23/2023) Medications Medication Sig Dispensed Refills Start Date End Date Status LORAZEPAM 0.5 MG PO TABSIndications:D epressive disorder, not elsewhere classified One pill by mouth 3 times a day as needed for anxiety 90 0 08/28/2008 Active ASPIRIN EC 81 MG PO TBEC Take one pill daily 100 Tab 3 02/24/2014 Active Cholecalciferol (VITAMIN D) 1000 units Tablet Take 1 Tablet by mouth in the morning. 0 Active fluorouracil (EFUDEX) 5 % creamIndications: Actinic keratosis,Squamou s cell carcinoma in situ Start 03/19/20: apply 2x daily to entire tops of hands until derm appointment on 04/09/20 7:20am 40 g 1 03/12/2020 Active Additional Information Patient not taking.Reported on 01/11/2023 Tolterodine Tartrate ER 4 MG Oral Capsule Extended Release 24 Hour (Detrol LA)Indications:Ur inary incontinence, unspecified type Take 1 Capsule by mouth in the morning. 30 Capsule 0 08/11/2022 Active Atorvastatin Calcium 20 MG Oral Tablet (Lipitor)Indicati ons:Hyperlipidemi a LDL goal <130 TAKE ONE TABLET BY MOUTH EVERY MORNING 100 Tablet 2 09/28/2022 10/01/19 24 Active PARoxetine HCl 10 MG Oral Tablet (pAXil)Indication s:Depression with anxiety TAKE ONE TABLET BY MOUTH EVERY MORNING 100 Tablet 2 09/28/2022 10/01/19 24 Active Enalapril Maleate 5 MG Oral Tablet (Vasotec) Take 1 Tablet by mouth in the morning. With HCTZ. 90 Tablet 1 05/02/2023 Active hydroCHLOROthiazi de 12.5 MG Oral Tablet (Hydrodiuril) Take 1 Tablet by mouth in the morning. With enalapril. 90 Tablet 1 05/02/2023 Active Clobetasol Propionate 0.05 % External Ointment (Temovate) Apply to the arms twice daily as needed 60 g 2 08/22/2023 Active BETAMETHASONE DIPROPIONATE 0.05 % EX CREAIndications:U rticaria Apply to affected area twice a day 1 Tube 3 07/04/2011 08/22/19 24 Discontinued Triamcinolone Acetonide 0.1 % External Cream (Aristocort) Apply to the arms twice daily for 1-2 weeks as needed for bites 80 g 0 01/11/2023 08/22/19 24 Discontinued Hydrocortisone 2.5 % External CreamIndications: Other eczema Apply topically to affected area 3 times a day. To affected area. 3.5 g 0 08/09/2023 08/22/19 24 Discontinued documented as of this encounter (statuses as of 08/23/2023) Active Problems Problem Noted Date Diagnosed Date [...] as of this encounter (statuses as of 08/23/2023) Resolved Problems Problem Noted Date Diagnosed Date [...] as of this encounter (statuses as of 08/23/2023) Immunizations Name Administration Dates Next Due COVID-19 mRNA, LNP-s, No Pre serve, 2-Dose Series (Pfizer) 06/10/2021,10/15/2020,09/17/2020 Pneumococcal Conjugate Vacc, 13 Valent (Prevnar) 03/24/2016 Pneumococcal Polysaccharide PPV23 (Pneumovax) 08/16/2013,01/03/2006 TD - Tetanus/Diptheria (ADULT) 02/21/2000 0 02/23/2010 TDAP (age 10 and older)(Boostrix) 11/04/2021 TDAP [...] as of this encounter Progress Notes * Nikita Ho MD - 08/23/2023 9:07 AM EST I have seen and examined via teledermatology review of chart note and photos the patient with Bib Pena PA-C. I have reviewed and agree with the assessment and plan. Nikita Ho MD * Bib Pena PA-C - 08/22/2023 3:48 PM EST SUBJECTIVE: History of Present Illness: Marissa Lewis is a 73 year old female seen today for a rash on the arms. Very itchy and can besore. Present the past 1-2 months. She has been treating with HC and TMC seeing no improvement. Icepacks have been helpful. 01/11/2023 (in office) REVIEW OF SYSTEMS: SKIN: No other new or changing moles. HEME/LYMPH: No new or enlarging lumps or bumps. CONSTITUTIONAL: No nausea, vomiting, fevers, chills, diarrhea. No recent unintended weight loss, night sweats, appetite or malaise. 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 With enalapril. 90 Tablet 1 No current facility-administered medications for this visit. ALLERG IES: Patient has no known allergies. OBJECT IRIS: GEN: Healthy, alert, no distress, appears oriented, pleasant, and cooperative. SKIN: Detailed exam of back and bilateral upper ext. (arm, hand, fingers) completed and are normal except: A. Distal upper arms/proximal forearm with lichenified pink papules forming thin plaques. Lower back with a few excoriated papules ASSESS MENT/PLAN: A. Favor neurodermatitis/lichen simplex chronicus, possibly other underlying dermatitis -do not pick/rub/scratch -can apply clobetasol twice daily for 1-2 weeks as needed. SER. Can occlude for a 1-2 weeks to prevent scratching. Cerave with pramoxine(samples given). Ok to continue with use of ice -if persistent, may need to consider biopsy at follow-up Follow-up: 1 month or sooner PRN Patient alone today. Photo(s) [...] the visit and treatment. Eleonora Pena PA-C 08/22/2023 3:49 PM Ref: SALOMON BALL[[id number]] [address] [place] [address] (office) [phone] (fax) PCP: SALOMON BALL [address] [place] [address] [phone] documented in this encounter Nursing Notes * Amy Quezada LPN - 08/22/2023 3:50 PM EST Patient identified by name and date. Chief Complaint Patient presents with Rash Patient presents today for rash on arms. Very itchy and sore. documented in this encounter Plan of Treatment Upcoming Encounters Date Type Department Care Team ([facility] st Contact Info) Description 09/19/2023 4:20 PM EST Office Visit Dermatology [facility] [address] [place] [phone] Bib Pena PA-C [address] [place] [phone] 12/20/2023 9:20 AM EDT [facility] [address] [facility] [place] [address] Salomon Ball MD [address] [facility] [place] [address] 01/16/2024 8:20 AM EDT Office Visit [facility] [address] [place] [phone] Bib Pena PA-C [address] [place] [address] Health Maintenance Due Date Last Done Comments [...] Discontinued Fecal Occult Blood Test Discontinued 04/11/20, 04/01/2000, 03/03/1999 Cologuard Discontinued GARDASIL-HPV IMMUNIZATION SERIES [...] Not on filedocumented as of this encounter Procedures Procedure Name Priority Date/Time Associated Diagnosis Comments DERM IMAGE (SITE) Routine 08/22/2023 Dermatitis documented in this encounter Results * DERM IMAGE (SITE) (08/22/2023) 08/22/2023 Bib Pena PA-C DIGITAL PHOTOGRAPHY documented in this encounter Visit Diagnoses Diagnosis Dermatitis- Primary Contact dermatitis and other eczema, due to unspecified cause LSC (lichen simplex chronicus) Lichenification and lichen simplex chronicus documented in this encounter Care Teams Entry Level Account Executive Relationship Specialty Start Date End Date Salomon Ball MD [address] [place] [address] PCP - General 08/31/07 documented as of this encounter
--- OUTSIDE RECORDS SUMMARY | 2023-09-22 06:50 | External Medical Summary ---
Author Name Unknown Address Unknown Organization [id number]:[facility] [place] [address] [place] [address] Laboratory Report Ordering Provider Test Date Status STAR MACARIO 09/19/2023 16:39:18 Final Observation Date Value Abnormality Reference (Units ) Status [place] light chains, Free, Serum 09/19/2023 16:39:18 20.00 Above high normal 3.30-19.40 (mg/L) Final Lambda light chains, free, Serum 09/19/2023 16:39:18 16.86 5.71-26.30 (mg/L) Final KAPPA LAMBDA FLC RATIO 09/19/2023 16:39:18 1.19 0.26-1.65 Final Performing Location [facility] [facility] [place] [facility] [address] [place] [address]
--- OUTSIDE RECORDS SUMMARY | 2023-09-22 06:50 | External Medical Summary ---
Author Name Unknown Address Unknown Organization [id number]:[facility] [place] - [address] [facility] [place] [address] Laboratory Report Ordering Provider Test Date Status STAR MACARIO 09/19/2023 16:39:18 Final Observation Date Value Abnormality Reference (Units ) Status BUN 09/19/2023 16:39:18 23 Above high normal 6-20 (mg/dL) Final Creatinine 09/19/2023 16:39:18 0.9 0.5-1.0 (mg/dL) Final Glomerular filtration rate/1.73 sq M.predicted [Volume Rate/Area] in Serum, Plasma or Blood by Creatinine-based formula (CKD-EPI) 09/19/2023 16:39:18 70 >=60 (mL/min) Final eGFR is calculated based on the CKD-EPI 2020 equation SODIUM 09/19/2023 16:39:18 138 135-146 (m mol/L) Final Potassium 09/19/2023 16:39:18 4.5 3.5-5.1 (m mol/L) Final Cl 09/19/2023 16:39:18 103 98-107 (mm ol/L) Final CO2 09/19/2023 16:39:18 25 22-32 (mmo l/L) Final Anion gap 09/19/2023 16:39:18 10 7-15 (mmol /L) Final Glucose 09/19/2023 16:39:18 92 70-120 (mg /dL) Final Albumin 09/19/2023 16:39:18 4.4 3.8-5.0 (g /dL) Final AST (Aspartate aminotransferase) 09/19/2023 16:39:18 20 10-35 (U/L) Final Alk Phos 09/19/2023 16:39:18 74 35-130 (U/ L) Final Bilirubin, Total 09/19/2023 16:39:18 0.4 <=1 .2 (mg/dL) Final Calcium 09/19/2023 16:39:18 9.6 8.4-10.2 ( mg/dL) Final Protein 09/19/2023 16:39:18 7.6 6.0-8.3 (g /dL) Final ALT (Alanine aminotransferase) 09/19/2023 16:39:18 22 10-35 (U/L) Final Performing Location LAB[facility]ATORY [facility] [place] - [facility] [address] [facility] [address]
--- OUTSIDE RECORDS SUMMARY | 2023-09-22 06:50 | External Medical Summary ---
Author Name Unknown Address Unknown Organization [id number]:[facility] - [address] [place] [address] Laboratory Report Ordering Provider Test Date Status STAR MACARIO 09/19/2023 16:39:18 Final Observation Date Value Abnormality Reference (Units ) Status T4, Free 09/19/2023 16:39:18 1.0 0.9-1.7 (n g/dL) Final Performing Location [facility] - [address] [place] [address]
--- OUTSIDE RECORDS SUMMARY | 2023-09-22 06:50 | External Medical Summary | Summary of Care ---
Author Name Unknown Organization [facility] Address [address] [facility] [place] [address] Phone [phone] Care Team Providers Care Recycling Program Manager Name Role Phone Salomon Ball MD Primary Care Provider + Reason for Visit * Reason Comments Rash Patient presents tod for rash on arms. Very itchy and sore. Encounter Details Date Type Department Care Team ([facility] Contact Info) Description 08/22/2023 4:00 PM EST Office Visit Dermatology [facility] [address] [place] [address] Bib Pena PA-C [address] [place] [phone] Dermatitis*; LSC (lichen simplex chronicus) Allergies No known active allergiesdocumented as of this encounter (statuses as of 08/22/2023) Medications Medication Sig Dispensed Refills Start Date [...] as of this encounter (statuses as of 08/22/2023) Active Problems Problem Noted Date Diagnosed Date [...] as of this encounter (statuses as of 08/22/2023) Resolved Problems Problem Noted Date Diagnosed Date [...] as of this encounter (statuses as of 08/22/2023) Immunizations Name Administration Dates Next Due COVID-19 [...] Progress Notes * Bib Pena PA-C - 08/22/2023 3:48 [...] Pena PA-C 08/22/2023 3:49 PM Ref: SALOMON BALL[[id number]] [address] [facility] [place] [address] (office) [phone] (fax) PCP: SALOMON BALL [address] [facility] [place] [address] [phone] documented in this encounter Nursing Notes * Amy Quezada LPN - 08/22/2023 3:50 PM EST Patient identified by name and date. Chief Complaint Patient presents with Rash Patient presents today for rash on arms. Very itchy and sore. documented in this encounter Plan of Treatment Upcoming Encounters Date Type Department Care Team ([facility] st Contact Info) Description 09/19/2023 4:20 PM EST Office Visit Dermatology [facility] [address] [place] [phone] Bib Pena PA-C [address] [place] [address] 12/20/2023 9:20 AM EDT Office Visit General Internal Medicine [facility] [address] [place] [address] Salomon Ball MD [address] [facility] [place] [address] 01/16/2024 8:20 AM EDT Office Visit Dermatology [facility] [address] [place] [address] Bib Pena PA-C [address] [place] [address] Health Maintenance Due Date Last Done Comments [...] chronicus documented in this encounter Care Teams Recycling Program Manager Relationship Specialty Start Date End Date Salomon Ball MD [address] [place] [address] PCP - General 08/31/07 documented as of this encounter
--- OUTSIDE RECORDS SUMMARY | 2023-09-22 06:50 | External Medical Summary ---
Author Name Unknown Address Unknown Organization [id number]:[facility] [place] - [facility] [address] [facility] [address] [facility] [address] Laboratory Report Ordering Provider Test Date Status STAR MACARIO 09/19/2023 16:39:18 Final Observation Date Value Abnormality Reference (Units ) Status WBC, Total 09/19/2023 16:39:18 7.94 4.00-10.80 (K/uL) Final RBC 09/19/2023 16:39:18 4.86 3.85-5.15 (M/uL) Final Hemoglobin 09/19/2023 16:39:18 15.0 12.0-15.3 (g/dL) Final HCT 09/19/2023 16:39:18 44.3 36.0-45.2 (%) Final MCV 09/19/2023 16:39:18 91.2 81.5-97.5 (fL) Final MCH 09/19/2023 16:39:18 30.9 27.0-34.0 (pg) Final MCHC 09/19/2023 16:39:18 33.9 32.0-36.0 (g/dL) Final RDW 09/19/2023 16:39:18 13.5 11.5-15.5 (%) Final Platelets 09/19/2023 16:39:18 254 140-400 (K/uL) Final MPV 09/19/2023 16:39:18 10.3 6.6-11.1 (fL) Final Nucleated erythrocytes/100 leukocytes [Ratio] in Blood by Automated count 09/19/2023 16:39:18 0 <=0 (/100 WBCs) Final Performing Location [facility] [place] [facility] [address] [facility] [address] [facility] [address]
--- OUTSIDE RECORDS SUMMARY | 2023-09-22 06:50 | External Medical Summary ---
Author Name Unknown Address Unknown Organization [id number][place] [place] [address] [facility] [place] [address] Laboratory Report Ordering Provider Test Date Status STAR MACARIO 09/19/2023 16:39:18 Final Observation Date Value Abnormality Reference (Units ) Status SYNC LEUKOCYTES IN BLOOD BY AUTOMATED COUNT 09/19/2023 16:39:18 7.94 4.00-10.80 (K/uL) Final Segs 09/19/2023 16:39:18 67.3 40.0-75.0 (%) Final Lymphs % 09/19/2023 16:39:18 21.2 18.0-42.0 (%) Final Monos 09/19/2023 16:39:18 8.4 1.0-11.0 (%) Final Eosinophils 09/19/2023 16:39:18 2.1 0.0-6.0 (%) Final Basos 09/19/2023 16:39:18 0.6 0.0-2.0 (%) Final Immature Granulocyte, Percent 09/19/2023 16:39:18 0.4 0.0-2.0 (%) Final Absolute Segs 09/19/2023 16:39:18 5.34 1.80-7.70 (K/uL) Final Lymphs, absolute 09/19/2023 16:39:18 1.68 1.00-4.80 (K/ul) Final Monos, Abs 09/19/2023 16:39:18 0.67 0.00-1.10 (K/uL) Final Eos, Abs 09/19/2023 16:39:18 0.17 0.00-0.70 (K/uL) Final Basos, Abs 09/19/2023 16:39:18 0.05 0.00-0.20 (K/uL) Final Immature Granulocytes, Number 09/19/2023 16:39:18 0.03 0.00-0.20 (K/uL) Final Performing Location [facility] [place] [facility] [place] [address]
--- OUTSIDE RECORDS SUMMARY | 2023-09-22 06:50 | External Medical Summary | Summary of Care ---
Author Name Unknown Organization [facility] Address [address] [place] [facility] [place] [address] Phone [phone] Care Team Providers Care Roving Inspector Name Role Phone Nadira aBll MD Primary Care Provider + Reason for Visit * Reason Comments Outpatient Testing Encounter Details Date Type Department Care Team ([facility] st Contact Info) Description 09/19/2023 4:40 PM EST Laboratory Laboratory Patient Service [address] [phone] [address] Hx of nonmelanoma skin cancer; Dermatitis; LSC (lichen simplex chronicus) Allergies No known active allergiesdocumented as of this encounter (statuses as of 09/19/2023) Medications Medication Sig Dispensed Refills Start Date End Date Status LORAZEPAM 0.5 MG PO TABSIndications:De pressive disorder, not elsewhere classified One pill by mouth 3 times a day as needed for anxiety 90 0 08/28/2008 Active ASPIRIN EC 81 MG PO TBEC Take one pill daily 100 Tab 3 02/24/2014 Active Cholecalciferol (VITAMIN D) 1000 units Tablet Take 1 Tablet by mouth in the morning. 0 Active fluorouracil (EFUDEX) 5 % creamIndications:A ctinic keratosis,Squamous cell carcinoma in situ Start 03/19/20: apply 2x daily to entire tops of hands until derm appointment on 04/09/20 7:20am 40 g 1 03/12/2020 Active Additional Information Patient not taking.Reported on 01/11/2023 Tolterodine Tartrate ER 4 MG Oral Capsule Extended Release 24 Hour (Detrol LA)Indications:Uri nary incontinence, unspecified type Take 1 Capsule by mouth in the morning. 30 Capsule 0 08/11/2022 Active Atorvastatin Calcium 20 MG Oral Tablet (Lipitor)Indicatio ns:Hyperlipidemia LDL goal <130 TAKE ONE TABLET BY MOUTH EVERY MORNING 100 Tablet 2 09/28/2022 10/01/2023 Active PARoxetine HCl 10 MG Oral Tablet (pAXil)Indications :Depression with anxiety TAKE ONE TABLET BY MOUTH EVERY MORNING 100 Tablet 2 09/28/2022 10/01/2023 Active Enalapril Maleate 5 MG Oral Tablet (Vasotec) Take 1 Tablet by mouth in the morning. With HCTZ. 90 Tablet 1 05/02/2023 Active hydroCHLOROthiazid e 12.5 MG Oral Tablet (Hydrodiuril) Take 1 Tablet by mouth in the morning. With enalapril. 90 Tablet 1 05/02/2023 Active Clobetasol Propionate 0.05 % External Cream (Temovate) Apply to the arms twice daily as needed for 1-2 weeks 60 g 2 09/19/2023 Active documented as of this encounter (statuses [...] on file documented as of this encounter Plan of Treatment Upcoming Encounters Date Type Department Care Team ([facility] st Contact Info) Description 12/20/2023 9:20 AM EDT Office Visit General Internal Medicine [facility] [address] [place] [address] Nadira Ball MD 200 [facility] [place] [address] 03/20/2024 11:20 AM EDT Office Visit Dermatology [address] [phone] Bib Pena PA-C [address] [place] [id number] Pending Results Name Type Priority Associated Diagnoses [...] simplex chronicus) 09/19/2023 4:39 PM EST CBC Lab Routine Hx of nonmelanoma skin cancer Dermatitis LSC (lichen simplex chronicus) 09/19/2023 4:39 PM EST DIFFERENTIAL, AUTOMATED Lab Routine Hx of nonmelanoma skin cancer Dermatitis LSC (lichen simplex chronicus) 09/19/2023 4:39 PM EST Health Maintenance Due Date Last Done Comments [...] as of this encounter Visit Diagnoses Diagnosis Hx of nonmelanoma skin cancer Personal history of other malignant neoplasm of skin Dermatitis Contact dermatitis and other eczema, due to unspecified cause LSC (lichen simplex chronicus) Lichenification and lichen simplex chronicus documented in this encounter Care Teams Roving Inspector Relationship Specialty Start Date End Date Ball, Nadira Amos, MD 200 [facility] [place] [address] PCP - General 08/31/07 documented as of this encounter
--- OUTSIDE RECORDS SUMMARY | 2023-09-22 06:50 | External Medical Summary | Summary of Care ---
Author Name Unknown Organization [facility] Address [address] [facility] [place] [address] Phone [phone] Care Team Providers Care Cannery Worker Name Role Phone Nadira Ball MD Primary Care Provider + Encounter Details Date Type Department Care Team (Late st Contact Info) Description 07/14/2023 Orders Only General Internal Medicine [facility] [place] 200 [facility] [place] [address] Nadira Ball MD 200 [facility] [place] [address] Allergies No known active allergiesdocumented as of this encounter (statuses as of 07/14/2023) Medications Medication Sig Dispensed Refills Start Date [...] as of this encounter (statuses as of 07/14/2023) Active Problems Problem Noted Date Diagnosed Date [...] as of this encounter (statuses as of 07/14/2023) Resolved Problems Problem Noted Date Diagnosed Date [...] as of this encounter (statuses as of 07/14/2023) Immunizations Name Administration Dates Next Due COVID-19 [...] Upcoming Encounters Date Type Department Care Team ([facility] st Contact Info) Description 08/03/2023 2:30 PM EST Imaging Radiology, [place] [id number] [facility] [place] [address] 12/20/2023 9:20 AM EDT Office Visit General Internal Medicine [facility] [address] [place] [address] Nadira Ball MD 200 [place] [address] 01/16/2024 8:20 AM EDT Office Visit Dermatology [facility] [address] [place] [phone] Bib Pena PA-C [address] [place] [address] Health Maintenance Due Date Last Done Comments [...] Procedure Name Priority Date/Time Associated Diagnosis Comments MAMMOGRAM SCREENING BILATERAL Routine 07/13/2023 documented in this encounter Results * MAMMOGRAM SCREENING BILATERAL (07/13/2023) Anatomical Region Laterality Modality Breast Bilateral Other 07/13/2023 Nadira Ball MD RAD MAMMOGRAPHY documented in this encounter Care Teams Cannery Worker Relationship Specialty Start Date End Date Nadira Ball MD [address] [place] [address], [place] [address] PCP - General 08/31/07 documented as of this encounter
--- OUTSIDE RECORDS SUMMARY | 2023-09-22 06:50 | External Medical Summary | Summary of Care ---
Author Name Unknown Organization [facility] Address [address] [facility] [place] [address] Phone [phone] Care Team Providers Care Prosthetics Assistant Name Role Phone Salomon Ball MD Primary Care Provider + Reason for Visit * Reason Comments Follow Up Pt here for 1 month f/u for arms. Pt is using ointment prescribed and feels it is working well. Encounter Details Date Type Department Care Team ([facility] st Contact Info) Description 09/19/2023 4:20 PM EST Office Visit Dermatology [address] [phone] Bib Pena PA-C [address] [place] [address] Dermatitis*; LSC (lichen simplex chronicus); Pruritus Allergies No known active allergiesdocumented as of this encounter (statuses as of 09/20/2023) Medications Medication Sig Dispensed Refills Start Date [...] as of this encounter (statuses as of 09/20/2023) Active Problems Problem Noted Date Diagnosed Date [...] as of this encounter (statuses as of 09/20/2023) Resolved Problems Problem Noted Date Diagnosed Date [...] as of this encounter (statuses as of 09/20/2023) Immunizations Name Administration Dates Next Due COVID-19 [...] Progress Notes * Nikita Ho MD - 09/20/2023 7:57 AM EST I have seen and examined via teledermatology review of chart note and photos the patient with Bib Pena PA-C. I have reviewed and agree with the assessment and plan. Nikita Ho MD * Bib Pena PA-C - 09/19/2023 4:16 [...] Eleonora Pena PA-C 09/19/2023 4:16 PM Ref: SELF[[id number]] NO STRE[address] ADDRESS AVAILABLE None (office) None (fax) [facility] [address] [phone] documented in this encounter Nursing Notes * [...] AM EDT Office Visit General Internal Medicine [facility] [place] [address] [facility] [place] [address] Salomon Ball MD 200 [facility] [place] [address] 03/20/2024 11:20 AM EDT Office Visit Dermatology [facility] [address] [place] [phone] Bib Pena PA-C [address] [place] [address] Pending Results Name Type Priority Associated Diagnoses [...] exists Influenza Vaccine (FLU shot) (#1) 2023 HbA1c 06/15/2024 06/15/2023, 05/07, 02/10/2021, Additional history exists GFR 09/19/2024 09/19/2023, 1104/2023, 05/20/2022, Additional history exists Albumin/Creatinine Ratio 06/15/2026 023, 01/31/2020, 10/05/2017, Additional history exists DTaP,Tdap,and Td Vaccines (3 - Td or Tdap) 11/05/2031 11/04/2021, 12/30/2010, 02/21/2000 Colonoscopy Discontinued 08/24/2012, 08/24/2012 Pneumococcal Vaccine: 65+ Years Completed 03/24/2016, 08/16/2013, 01/03/2006 Zoster Vaccines Completed 04/22/2021, 02/10/2021 Colorectal Cancer Screening Discontinued Fecal Occult Blood Test Discontinued 04/11/20 23, 04/11/2023, 04/01/2000, Additional history exists Cologuard Discontinued [...] Associated Diagnosis Comments DERM IMAGE (SITE) Routine 09/19/2023 Dermatitis LSC (lichen simplex chronicus) documented in this encounter Results * (ABNORMAL) TSH WITH FREE T4 IF INDICATED (09/19/2023 4:39 PM EST) TSH 5.39(H) 0.27 - 4.20 uIU/mL 09/20/2023 12:50 AM EST LABORATORY GM Blood Venous blood specimen / Unknown Venipuncture / Unknown 09/19/2023 4:39 PM EST 09/19/2023 4:39 PM EST Bib Pena PA-C LAB BLOOD ORDERABLE S LABORATORY [facility] [address] [place] [address] * (ABNORMAL) COMPREHENSIVE METABOLIC PANEL (09/19/2023 4:39 PM EST) BUN 23(H) 6 - 20 mg/dL 09/19/2023 10:09 PM EST LABORATORY [facility] Creatinine 0.9 0.5 - 1.0 mg/dL 09/19/2023 10:09 PM EST LAB[facility]ATORY [facility] Estimated Glomerular Filtration Rate 70 >=60 mL/min 09/19/2023 10:09 PM EST LABORATORY [facility] Comment:eGFR is calculated b ased on the CKD-EPI 2020 equation Sodium 138 135 - 146 mmol/L 09/19/2023 10:09 PM EST LAB[facility]ORY [facility] Potassium 4.5 3.5 - 5.1 mmol/L 09/19/2023 10:09 PM EST LAB[facility] Chloride 103 98 - 107 mmol/L 09/19/2023 10:09 PM EST LAB[facility] CO2 25 22 - 32 mmol/L 09/19/2023 10:09 PM EST LAB[facility] Anion Gap 10 7 - 15 mmol/L 09/19/2023 10:09 PM EST LAB[facility] Glucose 92 70 - 120 mg/dL 09/19/2023 10:09 PM EST LAB[facility] Albumin 4.4 3.8 - 5.0 g/dL 09/19/2023 10:09 PM EST LAB[facility] AST 20 10 - 35 U/L 09/19/2023 10:09 PM EST LAB[facility] Alkaline Phosphatase 74 35 - 130 U/L 09/19/2023 10:09 PM EST LAB[facility] Bilirubin, Total 0.4 <=1.2 mg/dL 09/19/2023 10:09 PM EST LAB[facility] Calcium 9.6 8.4 - 10.2 mg/dL 09/19/2023 10:09 PM EST [facility] Protein 7.6 6.0 - 8.3 g/dL 09/19/2023 10:09 PM EST [facility] ALT 22 10 - 35 U/L 09/19/2023 10:09 PM EST LAB[facility]ATORY [facility] Blood Venous blood specimen / Unknown Venipuncture / Unknown 09/19/2023 4:39 PM EST 09/19/2023 4:39 PM EST Bib Pena PA-C LAB BLOOD ORDERABLE S LABORATORY [facility] [address] [place] [address] * DERM IMAGE (SITE) (09/19/2023) 09/19/2023 Bib Pena PA-C DIGITAL PHOTOGRAPHY documented in this encounter Visit Diagnoses Diagnosis Dermatitis- Primary Contact dermatitis and other eczema, due to unspecified cause LSC (lichen simplex chronicus) Lichenification and lichen simplex chronicus Pruritus Unspecified pruritic disorder documented in this encounter Care Teams Prosthetics Assistant Relationship Specialty Start Date End Date Salomon Ball MD 200 [facility] [place] [address] PCP - General 08/31/07 documented as of this encounter
--- OUTSIDE RECORDS SUMMARY | 2023-09-22 06:50 | External Medical Summary | Summary of Care ---
Author Name Unknown Organization [facility] Address [address] [place] [address] Phone [phone] Care Team Providers Care Rubber Goods Finisher Name Role Phone Nadira Ball MD Primary Care Provider + Reason for Visit * Reason Onset Date Comments MyCode Nonconsent - Not interested at this time 08/22/2023 Encounter Details Date Type Department Care Team (Late st Contact Info) Description 08/22/2023 Orders Only Outcomes Research Department [address] [place] [address] Edel Menjivar CHRA MyCode Nonconsent Documentation Allergies No known active allergiesdocumented as of [...] With enalapril. 90 Tablet 1 05/02/2023 Active BETAMETHASONE DIPROPIONATE 0.05 % EX CREAIndications:U [...] as of this encounter Progress Notes * Edel Menjivar CHRA - 08/22/2023 3:48 PM EST MyCode Nonconsent Documentation Marissa Lewis was approached in the clinic regarding participation in the MyCode Project and did not consent. documented in this encounter Plan of Treatment Upcoming Encounters Date Type Department Care Team ([facility] st Contact Info) Description 12/20/2023 9:20 AM EDT Office Visit General Internal Medicine [facility] [place] [address] [place], [place] [address] Nadira Ball MD [address] [place], [place] [address] 01/16/2024 8:20 AM EDT Office Visit Dermatology [facility] [address] [place] [phone] Bib Pena PA-C [address] [place] [address] Health Maintenance Due Date Last Done Comments [...] filedocumented as of this encounter Care Teams Rubber Goods Finisher Relationship Specialty Start Date End Date Nadira Ball MD 200 [facility] [place], [place] [address] PCP - General 08/31/07 documented as of this encounter
--- OUTSIDE RECORDS SUMMARY | 2023-09-22 06:50 | External Medical Summary ---
Author Name Unknown Address Unknown Organization [id number]:LABORATORY [facility] [address] [facility] [place] [address] Laboratory Report Ordering Provider Test Date Status STAR MACARIO 09/19/2023 16:39:18 Final Observation Date Value Abnormality Reference (Units) Status PARAPROTEIN NORMAL/ABNORMAL 16:39:18 Abnormal Abnormal Normal Final Protein 16:39:18 7.6 6.0-8.3 (g/dL) Final Albumin/Protein.tota l [Pure mass fraction] in Serum or Plasma by Electrophoresis 16:39:18 3.85 3.30-4.40 (g/dL) Final Alpha 1 globulin/Protein.tot al [Pure mass fraction] in Serum or Plasma by Electrophoresis 4 16:39:18 0.17 0.10-0.30 (g/dL) Final Alpha 2 globulin/Protein.tot al [Pure mass fraction] in Serum or Plasma by Electrophoresis 4 16:39:18 1.01 Above high normal 0.60-1.00 (g/dL) Final Beta globulin/Protein.tot al [Pure mass fraction] in Serum or Plasma by Electrophoresis 4 16:39:18 1.04 0.80-1.30 (g/dL) Final Gamma globulin/Protein.tot al [Pure mass fraction] in Serum or Plasma by Electrophoresis 4 16:39:18 1.54 0.70-1.70 (g/dL) Final Protein Fractions [Interpretation] in Serum or Plasma by Electrophoresis Narrative 4 16:39:18 A paraprotein is present.Paraprotein concentration is less than 0.5 g/dL, unable to be accurately quantified by this method. Appropriate studies, including quantitative immunoglobulins, serum free light chains, and serum immunofixation have been ordered in follow up.See serum immunofixation results. Recommend urine electrophoresis and urine immnuofixation in follow-up, if clinically indicated. Final Protein Fractions [Interpretation] in Serum or Plasma by Electrophoresis Narrative 4 16:39:18 Final Performing Location LAB[facility]ATORY [facility] [address] [facility] [address]
--- OUTSIDE RECORDS SUMMARY | 2023-09-22 06:50 | External Medical Summary ---
Author Name Unknown Address Unknown Organization K01:LABORATORY [facility] - [address] [place] [address] Laboratory Report Ordering Provider Test Date Status STAR MACARIO 09/19/2023 16:39:18 Final Observation Date Value Abnormality Reference (Units ) Status IgG 09/19/2023 16:39:18 [id number] ( mg/dL) Final IgA 09/19/2023 16:39:18 257 70-400 (mg /dL) Final IgM 09/19/2023 16:39:18 87 40-230 (mg /dL) Final Performing Location LAB[facility]ATORY [facility] - [address] [place] [address]
--- OUTSIDE RECORDS SUMMARY | 2023-09-22 06:50 | External Medical Summary ---
Author Name Unknown Address Unknown Organization [id number]:LABORATORY [facility] [place] - [address] [place] [address] Laboratory Report Ordering Provider Test Date Status STAR MACARIO 09/19/2023 16:39:18 Final Observation Date Value Abnormality Reference (Units ) Status TSH 09/19/2023 16:39:18 5.39 Above high normal 0. 27-4.20 (uIU/mL) Final Performing Location LABORATORY [facility] - [address] [place] [address]
[2023-09-22 07:00] LABS: BUN Creatinine Ratio 23.5 (10-20); Calcium 8.3 mg/dl (8.6-10.3); Creatinine Clr Calc Pharmacy 61.9 ml/min; Est GFR (African American) 82.3 ml/min
[2023-09-22 08:21] LABS: Estimated Average Glucose 134 mg/dl; Hemoglobin A1C 6.3 % (4.5-5.6)
[2023-09-22] MEDS: OXYBUTYNIN CHLORIDE XL 5 MG TABCR PO SCH (08:34)
[2023-09-22] MEDS: ATORVASTATIN 20 MG TAB PO SCH (08:34)
[2023-09-22] MEDS: PARoxetine HCL 10 MG TAB PO SCH (08:34)
[2023-09-22] MEDS: ENALAPRIL MALEATE 5 MG TAB PO SCH (08:35)
--- NOTE | 2023-09-22 09:06 | Orthopedic Consultation ---
Date of Service September 22, 2023 Assessment & Plan (1) Closed fracture of left hip: NPO. Plan on left hip bipolar hemiarthroplasty vs total hip arthroplasty today. Continue bedrest. Pain control. Discussed with Dr. Johns. The patient was seen by myself Guan[place]ito Johns. Agree with above. Discussed treatment option with the patient. Working to proceed with a cemented total hip replacement based on her physiologically younger age and activity level. History of Present Illness Reason for Consultation: . Requesting Physician: . Attending Physician: Edmar Espinoza MD . Marissa is a 73 year old patient admitted last night with a left hip fracture. She said that she stood up too quickly yesterday, got a cramp in her thigh and fell. She was able to sort of drag herself upstairs. She tried to wait but her pain was not improving. No other injuries. No past hip pain. Allergies Allergy/AdvReac Type Severity Reaction Status Date / Time No Known Allergies Allergy Unknown Verified 06/11/04 09:11 Home Medications Medication Instructions Recorded Confirmed Type aspirin 81 mg capsule 81 mg PO DAILY 09/21/23 09/21/23 History atorvastatin 20 mg tablet 20 mg PO DAILY 09/21/23 09/21/23 History cholecalciferol (vitamin D3) 25 25 mcg PO DAILY 09/21/23 09/21/23 History mcg (1,000 unit) tablet enalapril maleate 5 mg tablet 5 mg PO DAILY 09/21/23 09/21/23 History hydrochlorothiazide 12.5 mg tablet 12.5 mg PO DAILY 09/21/23 09/21/23 History lorazepam 0.5 mg tablet 0.5 mg PO TID PRN Anxiety 09/21/23 09/21/23 History paroxetine HCl 10 mg tablet 10 mg PO DAILY 09/21/23 09/21/23 History tolterodine 4 mg capsule,extended 4 mg PO DAILY 09/21/23 09/21/23 History release 24 hr Past Med/Surg History Medical History Hypothyroidism Depression with anxiety HTN (hypertension) Hyperlipidemia Surgical History S/P ear surgery S/P tonsillectomy and adenoidectomy Hx of appendectomy Family History Other Cancer Diabetes Stroke Social History Smoking Status: Never smoker Hx Alcohol Use: No Hx Substance Use: No Preferred Language: Chinese Communication Ability: Effective Senior Office Assistant Required: No Beliefs That Will Affect Care: None Current Living Situation: Spouse Feels Safe at Home: Yes Safety Concerns: Feels Safe At This Time Assistive Devices: Walker Review of Systems All systems reviewed & are unremarkable except as noted in HPI & below. Physical Exam .alert and oriented. NAD Left leg: no range of motion of her hip at this time. Skin is intact around the lateral hip. No significant edema. Able to dorsiflex and plantarflex. NVI Results & Data Results & Data Laboratory Results . Diagnostic Findings .xrays show a displaced left femoral neck fracture PG Care Time/CCT Total # of Minutes Spent Total Time Spent with Patient: Total time spent is greater than 50% in coordination of care (as documented) at patient's floor/unit and/or counseling patient: Coding Level of Care Code 57427 IN/OBS CONSULT LVL 4,60M (57 - DECISION FOR SURGERY) Diagnoses Closed fracture of left hip S72.002A Encounter type: initial encounter (1) Closed fracture of left hip Encounter type: initial encounter Qualified Code(s): S72.002A - Fracture of unspecified part of neck of left femur, initial encounter for closed fracture
--- NOTE | 2023-09-22 09:25 | Anesthesiology Consultation ---
Date of Service September 22, 2023 Assessment & Plan Chart Review Chart Review: master sonar technician initiated History Surgery Operation Date: 09/22/23 07:05 Proposed Procedures p Left Bipolar Hip Prosthesis versus - Guan[place]ito Johns MD s Left Total Hip Arthroplasty Cemented - Guan[place]ito Johns MD Height/Weight Height: 5 ft 2 in Weight: 88.1 kg Allergies Allergy/AdvReac Type Severity Reaction Status Date / Time No Known Allergies Allergy Unknown Verified 06/11/04 09:11 Medications Home Medications Medication Instructions Recorded Confirmed Last Taken aspirin 81 mg capsule 81 mg PO DAILY 09/21/23 09/21/23 Unknown atorvastatin 20 mg tablet 20 mg PO DAILY 09/21/23 09/21/23 Unknown cholecalciferol (vitamin D3) 25 25 mcg PO DAILY 09/21/23 09/21/23 Unknown mcg (1,000 unit) tablet enalapril maleate 5 mg tablet 5 mg PO DAILY 09/21/23 09/21/23 Unknown hydrochlorothiazide 12.5 mg tablet 12.5 mg PO DAILY 09/21/23 09/21/23 Unknown lorazepam 0.5 mg tablet 0.5 mg PO TID PRN Anxiety 09/21/23 09/21/23 Unknown paroxetine HCl 10 mg tablet 10 mg PO DAILY 09/21/23 09/21/23 Unknown tolterodine 4 mg capsule,extended 4 mg PO DAILY 09/21/23 09/21/23 Unknown release 24 hr Active Medications Generic Name Dose Route Start Last Admin Trade Name Freq PRN Reason Stop Dose Admin Atorvastatin Calcium 20 mg 09/22/23 09:00 09/22/23 08:34 Atorvastatin 20 Mg Tab PO 10/22/23 08:59 20 mg DAILY SAMUEL Administration Enalapril Maleate 5 mg 09/22/23 09:00 09/22/23 08:35 Enalapril Maleate 5 Mg Tab PO 10/22/23 08:59 Not Given DAILY SAMUEL Hydromorphone HCl 0.5 mg 09/21/23 22:03 09/22/23 06:18 Hydromorphone Inj 0.5 Mg/0.5 Ml Syr IV 10/05/23 22:02 0.5 mg Q3H PRN Administration Severe Pain (Scale 7, 8, 9,10) Sodium Chloride 1,000 mls @ 100 mls/hr 09/21/23 17:45 09/22/23 04:04 Nss IV 09/22/23 13:44 100 mls/hr .Q10H SAMUEL Administration Lorazepam 0.5 mg 09/21/23 20:39 09/21/23 21:36 Lorazepam 0.5 Mg Tab PO 10/21/23 20:38 0.5 mg DAILY PRN Administration Anxiety Oxybutynin Chloride 10 mg 09/22/23 09:00 09/22/23 08:34 Oxybutynin Chloride Xl 5 Mg Tabcr PO 10/22/23 08:59 10 mg DAILY SAMUEL Administration Oxycodone HCl 10 mg 09/21/23 20:39 09/21/23 21:36 Oxycodone Hcl Ir 5 Mg Tab (Immediate Release) PO 10/05/23 20:38 10 mg Q4H PRN Administration SEVERE Pain (7,8,9,10) Paroxetine HCl 10 mg 09/22/23 09:00 09/22/23 08:34 Paroxetine Hcl 10 Mg Tab PO 10/22/23 08:59 10 mg DAILY SAMUEL Administration Past Medical History Medical History Hypothyroidism Depression with anxiety HTN (hypertension) Hyperlipidemia Past Family History Family History Other Cancer Diabetes Stroke Past Surgical History Surgical History S/P ear surgery S/P tonsillectomy and adenoidectomy Hx of appendectomy Social History Smoking Status: Never smoker Hx Alcohol Use: No Hx Substance Use: No Physical Exam Vital Signs Last Vital Signs Temp 98.8 F 09/22/23 07:57 Pulse 88 09/22/23 07:57 Resp 18 09/22/23 07:57 BP 119/75 09/22/23 07:57 Pulse Ox 93 09/22/23 07:57 O2 Del Method Nasal Cannula 09/22/23 07:57 O2 Flow Rate 3 09/22/23 07:57 Testing Laboratory Results 09/22/23 05:54 09/22/23 05:54 Hemoglobin A1c 6.3 % (4.5-5.6) H 09/22/23 05:54 Urine Color Dark Yellow 09/21/23 16:45 Urine Appearance Clear (Clear) 09/21/23 16:45 Urine pH 5.0 (4.5-7.5) 09/21/23 16:45 Ur Specific [place] 1.027 (1.000-1.030) 09/21/23 16:45 Urine Protein Negative (Negative) 09/21/23 16:45 Urine Glucose (UA) Negative (Negative) 09/21/23 16:45 Urine Ketones Negative (Negative) 09/21/23 16:45 Urine Nitrite Negative (Negative) 09/21/23 16:45 Ur Leukocyte Esterase Negative (Negative) 09/21/23 16:45 Blood Type A Positive 09/21/23 21:08 Antibody Screen NEGATIVE 09/21/23 21:08 Electrocardiogram Date: 09/21/23 Sinus rhythm with occasional Premature ventricular complexes, rate 81 bpm Nonspecific T wave abnormality Abnormal ECG When compared with ECG of 28-OCT-2014 10:15, Premature ventricular complexes are now Present Nonspecific T wave abnormality now evident in Lateral leads Chest X-Ray Date: 09/21/23 IMPRESSION: Cardiomegaly with no active disease in the chest.
--- NOTE | 2023-09-22 11:39 | Electrocardiogram Report ---
Test Reason : Blood Pressure : / mmHG Vent. Rate : 081 BPM Atrial Rate : 081 BPM P-R Int : 152 ms QRS Dur : 074 ms QT Int : 376 ms P-R-T Axes : 037 057 -02 degrees QTc Int : 436 ms Sinus rhythm with occasional Premature ventricular complexes Nonspecific T wave abnormality Abnormal ECG When compared with ECG of 28-OCT-2014 10:15, Premature ventricular complexes are now Present Nonspecific T wave abnormality now evident in Lateral leads Confirmed by Enrique Russo ([id number]) on 09/22/2023 11:38:32 AM Referred By: REFERRED SELF Confirmed By:Enrique Russo
--- NOTE | 2023-09-22 13:40 | History & Physical Bridge Note ---
Date of Service September 22, 2023 History & Physical Bridge Note I have examined the patient, reviewed the History & Physical and in the interval since the performance of the History & Physical I have noted the following changes of clinical significance: no changes noted
[2023-09-22] MEDS ORDERED: LIDOCAINE 2% 2 ML VIAL/AMP(20MG/ML) INFIL ONE (13:55)
[2023-09-22] MEDS ORDERED: PROPOFOL IV EMULSION 10 MG/ML 20 ML VIAL IV ONE (13:55)
[2023-09-22] MEDS ORDERED: ONDANSETRON INJ 2 MG/ML 2 ML VIAL ONE ×2 (13:55→15:04)
[2023-09-22] MEDS ORDERED: MIDAZOLAM HCL 1 MG/ML 2ML VIAL ONE (13:55)
--- NOTE | 2023-09-22 14:00 | Hospitalist Progress Note ---
Date of Service September 22, 2023 Assessment & Plan (1) Closed fracture of left hip: Plan: This is a 73-year-old female with PMH of hypertension, depression with anxiety, hyperlipidemia, hypothyroidism, prediabetes and other medical problems listed below who presents from home after a fall and was found to have an acute displaced left femoral neck fracture. Mechanical fall at home Femur XR with acute displaced left femoral neck fracture EKG with sinus rhythm with occasional PVCs, non- specific T wave abn in lateral leads, no acute ST changes CXR with cardiomegaly with no active disease in the chest Patient to undergo surgery by orthopedic today. PT OT after surgery Pain control Bowel regimen (2) HTN (hypertension): Plan: Chronic, stable. Hold HCTZ in AM. Continue enalapril (3) Depression with anxiety: Plan: Chronic, stable. Continue paroxetine, rarely uses her home PRN ativan (4) Hyperlipidemia: Plan: Continue statin (5) Hypothyroidism: Plan: Continue levothyroxine DVT Ppx: Currently on hold. Continue SCDs. Code status:FULL PCP: Hollie Dispo: Admitted to med/surg Please note the above document was generated using voice recognition software. It may contain grammatical, syntax or spelling errors. Any formal questions or concerns about the content, text or information contained within the body of this dictation should be directly addressed to the provider for clarification Admission and Anticipated Discharge Date Admission Date: September 21, 2023 Subjective Patient seen and examined at bedside She is lying in the bed comfortably; not in distress. Reports that pain is well-controlled with current medication. Patient to undergo OR today Review of Systems Review of Systems: All systems reviewed & are unremarkable except as noted in Subjective Physical Exam Physical Exam: Constitutional: WD/WN, vitals as above, NAD, sitting up in bed, pleasant, conversing easily Respiratory: normal respiratory effort, lungs clear to auscultation, no wheeze, rales, rhonchi. Normal insp/exp effort, no accessory muscle use Cardiovascular: RRR, no murmur, no edema Vessels: no JVD or carotid bruit Chest: normal inspection of chest Abdomen: normal bowel sounds, soft, nontender, no hepatosplenomegaly Musculoskeletal: Left hip tender; ROM limited by pain. Skin: no rashes, warm and dry normal turgor Neurologic: PERRL, EOMI, accommodation nl, no face palsy, no dysarthria CN's II- XI intact bilaterally and moves all extremities Psychiatric: A+Ox3, euthymic affect Results & Data Results & Data Vital Signs (Past 12 Hours) Vital Signs Temp Pulse Resp BP Pulse Ox O2 Del Method O2 Flow Rate 09/22/23 07:57 37.1 C 88 18 119/75 93 Nasal Cannula 3 09/22/23 07:30 Room Air (1) Closed fracture of left hip Encounter type: initial encounter Qualified Code(s): S72.002A - Fracture of unspecified part of neck of left femur, initial encounter for closed fracture
[2023-09-22] MEDS ORDERED: ATROPINE SULFATE 0.1 MG/ML 10ML SYR IV PRN (14:28)
[2023-09-22] MEDS ORDERED: ePHEDrine sulfate 50 MG/ML AMP IV PRN (14:28)
[2023-09-22] MEDS ORDERED: fentaNYL citrate PF 100 MCG/2 ML VIAL IV PRN (14:28)
[2023-09-22] MEDS ORDERED: HYDROmorphone INJ 1 MG/ML SYRINGE IV PRN (14:28)
[2023-09-22] MEDS ORDERED: ONDANSETRON INJ 2 MG/ML 2 ML VIAL IV PRN (14:28)
[2023-09-22] MEDS ORDERED: DEXAMETHASONE SOD INJ 4 MG/ML VIAL ONE (15:04)
[2023-09-22] MEDS ORDERED: ROCURONIUM BROMIDE 10 MG/ML 5 ML VIAL IV ONE (15:04)
[2023-09-22] MEDS ORDERED: PHENYLEPHRINE 100MCG/ML 10ML SYR IV ONE (15:07)
[2023-09-22] MEDS ORDERED: fentaNYL citrate PF 100 MCG/2 ML VIAL ONE ×2 (15:10→16:07)
[2023-09-22] MEDS: TRANEXAMIC ACID / 0.7% NACL 1000MG/100ML BAG IV ONE (15:48)
[2023-09-22] MEDS: ceFAZolin 2000MG 2,000 MG/15 ML SYR IV SCH ×2 (15:48→22:52)
[2023-09-22] MEDS ORDERED: SUGAMMADEX SODIUM 200 MG/2 ML VIAL IV ONE (16:25)
[2023-09-22] MEDS: BUPIVACAINE/EPINEPHRINE 0.5% MPF 1:200,000 30 ML VIAL ONE (16:27)
--- NOTE | 2023-09-22 17:53 | Operative Report ---
PG Post Operative Report Pre & Post Diagnosis Operation Date: 09/22/23 07:05 Pre-Op Diagnosis: Closed displaced left femoral neck fracture Post-Op Diagnosis: Closed displaced femoral neck fracture I identified the patient and participated in the time-out.: Yes Procedure Operation Date: 09/22/23 07:05 Actual Procedures p Left Total Hip Arthroplasty Cemented(Left) - Guanakito Johns MD Surgeon Guanakito Johns MD Pickling Machine Operator Zane Steve PA-C Estimated Blood Loss 200 Findings Consistent with Post-Op Diagnosis Specimens Left femoral head sent for pathology Anesthesia Type General Disposition Accompanied Patient To Recovery: No Indications Patient is a 73-year-old fairly active very independent female who sustained a fall yesterday. She was unable to ambulate. She brought to emergency room x- rays revealed a displaced femoral neck fracture. She was admitted to the hospital medically optimized. Treatment options were explained. Based on her activity level we elected proceed with a total hip arthroplasty. Description of Procedure Operative implants consist of: 1. DePuy size 50 mm acetabular shell. 2. 6.5 cancellous acetabular screws 1 of 35 mm length 1 to 25 mm length. 3. Highly cross-linked polyethylene liner with a 50 mm outer diameter 32 mm inner diameter. 4. [place] hole radar air traffic controller. 5. DePuy [place] size 3 high offset cemented femoral stem. 6. +9/32 mm ceramic articular ball. I attest to the content of the Intraoperative Record and any orders documented therein. Any exceptions are noted below.
[2023-09-22] MEDS ORDERED: FLUMAZENIL 0.1 MG/1 ML 10 ML VIAL IV ONE (18:11)
--- NOTE | 2023-09-22 18:43 | Anesthesiology Progress Note ---
Date of Service September 22, 2023 Anesthesia Post Procedure Vital Signs Vital Signs: Temp Pulse Pulse Resp BP BP Pulse Ox 09/22/23 14:12 36.6 C 81 19 121/71 96 09/22/23 07:57 37.1 C 88 18 119/75 93 09/22/23 07:30 09/21/23 21:30 09/21/23 21:30 36.6 C 81 18 175/89 H 98 09/21/23 20:30 77 17 128/81 96 09/21/23 20:00 80 17 101/65 95 09/21/23 19:30 83 17 115/66 96 09/21/23 19:01 101 H 14 103/84 94 09/21/23 18:55 102 H O2 Del Method O2 Flow Rate 09/22/23 14:12 Room Air 09/22/23 07:57 Nasal Cannula 3 09/22/23 07:30 Room Air 09/21/23 21:30 Nasal Cannula 2 09/21/23 21:30 Nasal Cannula 2 09/21/23 20:30 Nasal Cannula 2 09/21/23 20:00 Nasal Cannula 2 09/21/23 19:30 Nasal Cannula 2 09/21/23 19:01 Nasal Cannula 2 09/21/23 18:55 Pain Intensity Left Hip: Pain Intensity: 8 Transfer of Care Handoff Completed per policy Notes Mental Status: alert / awake / arousable and participated in evaluation Patient Amnestic to Procedure: Yes Nausea / Vomiting: adequately controlled Pain: adequately controlled Airway Patency, RR, SpO2: stable & adequate BP & HR: stable & adequate Hydration State: stable & adequate Anesthetic Complications: no major complications apparent and Pt Satisfied with anesthetic care Notes: Patient with mild confusion postop but vital signs are stable and will mean back to [place] oxygen.
--- NOTE | 2023-09-22 18:52 | XRay Report ---
AP PELVIS, CROSSTABLE LATERAL LEFT HIP History: Left hip fracture. Postop. FINDINGS: The patient is status post a left total hip arthroplasty. The hardware is intact. No fractu re or dislocation. Skin azucena are in place. IMPRESSION: Left total hip arthroplasty. No evidence for hardware complication. ACT 112: Negative or not required by law. Electronically signed by: Fermin Suazo M.D. 09/22/2023 6:50 PM
[2023-09-22] MEDS: TRANEXAMIC ACID IV ONE (19:38)
[2023-09-22] MEDS: SODIUM CHLORIDE 0.9% IV ONE (19:38)
[2023-09-22] MEDS: ASPIRIN 81 MG ECTAB PO SCH (19:47)
[2023-09-22] MEDS: SODIUM CHLORIDE 0.9% 1,000 ML IV SCH (19:47)
[2023-09-23 07:43] LABS: Hematocrit (blood only) 33.6 % (37.0-47.0); Mean Corpuscular Hemoglobin 29.7 pg (25.0-34.0); Mean Corpuscular Hgb Conc 32.7 g/dL (32.0-36.0); Mean Corpuscular Volume 90.8 fL (80.0-100.0); Mean Platelet Volume 9.4 fL (9.4-12.4); Platelet Count 169 K/uL (130-400); RDW Coefficient of Variation 13.5 % (11.5-14.5); RDW Standard Deviation 45.3 fL (36.4-46.3); White Blood Count 11.07 K/ul (4.8-10.8)
[2023-09-23 07:54] LABS: BUN Creatinine Ratio 20.8 (10-20); Calcium 8.4 mg/dl (8.6-10.3); Creatinine Clr Calc Pharmacy 69.6 ml/min; Est GFR (African American) 94.9 ml/min; Est GFR (Non-African American) 81.9 ml/min; Potassium 4.2 mmol/L (3.5-5.1)
[2023-09-23 07:59] LABS: Basophils # (auto) 0.02 K/uL (0.00-0.20); Basophils % (auto) 0.2 %; Immature Granulocytes # (auto) 0.07 K/uL (0.01-0.20); Immature Granulocytes % (auto) 0.6 %; Lymphocytes # (auto) 0.44 K/uL (1.20-3.40); Monocytes % (auto) 3.6 %; Neutrophils # (auto) 10.14 K/uL (1.40-6.50); Neutrophils % (auto) 91.6 %; RBC Morphology Unremarkable
--- NOTE | 2023-09-23 08:17 | Surgery Progress Note ---
Date of Service September 23, 2023 Assessment & Plan (1) Status post left hip replacement: Plan: 73-year-old female postop day 1 from left hip replacement done for fracture doing quite well. Hips located. She is neurologically intact. Pain is controlled. Plan: 1. DVT prophylaxis including thigh-high teds, SCDs, aspirin twice a day for 6 weeks. 2. PT/OT. She can fully weight-bear as tolerated. She needs to obey hip precautions for the next 6 weeks. 3. Pain control doing okay with current pain regimen. 4. Disposition plan to discharge to home. She is hoping to go home. Will see how therapy goes. She may need a rehab stay. She does have a to assist in her care. Will see how she does and hopefully we can get her home with some home health. Admission and Anticipated Discharge Date Admission Date: September 21, 2023 Subjective 73-year-old female postop day 1 from a left hybrid total hip replacement done for displaced femoral neck fracture. She is doing pretty well this morning. Rates her most severe pain to 3. Having some pain but much improved. No chest pain or shortness of breath. She has been up and out of bed. Physical Exam Physical Exam: Physical exam shows a pleasant middle-age female. She sitting up in bedside chair looks comfortable. Examination left hip reveals the dressing be clean dry and intact. Thigh is soft and supple. Leg lengths are equal. She can dorsiflex and plantarflex her foot appropriately. She is neurologically intact. Results & Data Vital Signs (Past 12 Hours) Vital Signs Temp Pulse Resp BP Pulse Ox O2 Del Method O2 Flow Rate 09/23/23 08:09 37.1 C 94 H 18 136/83 95 Nasal Cannula 2 09/23/23 03:11 95 Nasal Cannula 2 09/23/23 03:11 84 L Room Air 09/23/23 02:55 36.7 C 72 16 144/78 H 97 Nasal Cannula 3 09/23/23 00:23 37 C 83 16 132/76 92 Nasal Cannula 3 09/22/23 21:49 36.7 C 88 16 121/74 93 Nasal Cannula 3 09/22/23 20:49 36.5 C 89 16 126/75 95 Nasal Cannula 3 Laboratory Results Hemoglobin is 11.0. Hematocrit 33.6. Electrolytes are stable. PG Care Time/CCT Total # of Minutes Spent Total Time Spent with Patient: Total time spent is greater than 50% in coordination of care (as documented) at patient's floor/unit and/or counseling patient: Coding Level of Care Code 65640 Post Operative Follow-Up Diagnoses Status post left hip replacement Z96.642
--- NOTE | 2023-09-23 08:24 | Operative Report ---
PG Post Operative Report Pre & Post Diagnosis Operation Date: 09/22/23 07:05 Pre-Op Diagnosis: Closed fracture of left hip Post-Op Diagnosis: Closed fracture of left hip I identified the patient and participated in the time-out.: Yes Procedure Operation Date: 09/22/23 07:05 Actual Procedures p Left Total Hip Arthroplasty Cemented(Left) - Guanakito Johns MD Surgeon Guanakito Johns MD Monitoring Manager Zane Steve PA-C Estimated Blood Loss 200 Findings Consistent with Post-Op Diagnosis Specimens Left femoral head sent for pathology Anesthesia Type General Disposition Accompanied Patient To Recovery: No Indications Patient is 73-year-old female who sustained a fall. She had acute onset of pain. She was unable to ambulate. She was brought to the emergency room x-rays were displaced femoral neck fracture. She has been admitted by the hospitalist service, medically optimized indicated for surgical treatment. Due to her independent lifestyle and fairly active lifestyle we elected to proceed with total hip replacement. Description of Procedure Operative implants consist of: 1 DePuy/50 mm acetabular shell. 2. 6.5 cancellous acetabular screws 1 at 35 mm length 1 to 25 mm length. 3. [place] hole eliminator. 4. Highly cross-linked polyethylene liner with 32 mm inner diameter and 50 mm outer diameter. 5. DePuy [place] size 3 high offset cemented femoral stem. 6. +9/32 mm ceramic articular ball. The patient was taken to the operating, identified, placed on the operating table in the supine position. All contact areas were appropriately padded. IV antibiotics tried by anesthesia team. General anesthetic was implemented. The patient was then placed in the right lateral decubitus position. Axillary roll was placed. Distal [place] position was used for positioning. The left hip and leg were then scrubbed with Hibiclens and then prepped with ChloraPrep and draped in usual sterile fashion. A posterolateral approach to the left hip was then performed through a curvilinear incision centered over the greater trochanter. Sharp dissection was got through subcutaneous tissue down to level the IT band gluteal fascia. The IT band gluteal fascia incised longitudinally in line with skin incision. The underlying greater bursa was excised. The piriformis and external rotators along with the posterior hip joint capsule were then released in the posterior aspect the hip as a single layer. Great care was taken to protect the sciatic nerve at all times. The hip was then internally rotated. A femoral neck osteotomy cut was made just at the base of the fracture site. The femoral neck which was remaining was removed and the femoral head was removed. Attention drawn the acetabulum. The acetabular labrum was excised. The pulmonary fat was excised. Sequential reaming the acetabular was then performed beginning with size 43 and progressing up to 49. I did ream a little bit with a 50 reamer. A 50 mm DePuy acetabular shell was then placed in about 40 degrees lateral opening and 20 degrees of anteversion. It was fixed with two 6.5 acetabular screws. A trial liner was placed. Attention drawn the femur. The proximal femur was entered with a Dialoggy cutter followed by canal finder. I broached beginning with a size 1 and progressing up to 3. We got pretty good fit a 3. I trialed the hip. Hip was fully stable with pretty much all the heads but there was quite a bit of soft tissue laxity. Due to the nature of her fracture and the fact that she did not have arthritis we elected to try and maximize her stability and use +9 ahead. I did realize we might be lengthening her leg slightly but I thought it was worth the stability reasons. All trial implants were removed. [place] stock layer was placed. Highly cross- linked polyethylene liner was placed. A double batch [place] G cement was mixed. I then injected this in the canal and a size 3 high offset [place] cemented stem was placed. A +9/32 mm ceramic articular ball was placed. The hip was located. Once again found to be stable. Soft tissue tension was a little bit lax but hip was stable. We proceeded with closing. The wound was irrigated coconuts pulsatile lavage solution. I did inject locally with 60 cc of half percent Marcaine with epinephrine. The posterior capsule and external rotators were then repaired through drill holes in the posterior trochanter with #2 Tycron suture. The IT band gluteal fascia then closed in 1 PDS suture running fashion. Subcutaneous tissues then closed with 2 layers with a deep layer #2-0 Vicryl in the subcutaneous tissues with 2-0 Dexon suture in a buried interrupted fashion. Skin was closed skin azucena. Leg was then cleaned and dried and a Prevena VAC dressing was applied due to the very thick and soft tissue envelope. The patient was then brought out of general esthesia and transferred to the recovery in stable condition. Patient tolerated the procedure well and there were no complications. Zane Steve, my physician registered dental assistant rda, was present for the entire procedure. His assistance was essential and required for appropriate patient positioning, prepping and draping, surgical exposure, performing the technical details of the operation, placement the implants, closure of the wound, and placement of the sterile bandage. I attest to the content of the Intraoperative Record and any orders documented therein. Any exceptions are noted below.
[2023-09-23] MEDS ORDERED: ASPIRIN 81 MG ECTAB PO SCH (09:00)
[2023-09-23] MEDS: CHOLECALCIFEROL 25 MCG (1000 UNITS) TAB PO SCH (09:18)
[2023-09-23] MEDS: POLYETHYLENE (MIRALAX) 17 GM PACK PO PRN (15:36)
--- NOTE | 2023-09-23 15:48 | XRay Report ---
XR chest 1V portable HISTORY: 73 years-old Female hypoxia acute hypoxia COMPARISON: 09/21/2023 TECHNIQUE: AP view of the chest FINDINGS: Cardiac silhouette is mildly enlarged. Mild chronic interstitial coarsening. No pneumothorax, pleural effusion or airspace consolidation. Bones appear grossly intact. IMPRESSION: No acute process of the chest. ACT 112: Negative or not required by law. The above report was generated using voice recognition software. It may contain grammatical, syntax o r spelling errors. Electronically signed by: Mike Wisdom M.D. 09/23/2023 3:47 PM
--- NOTE | 2023-09-23 16:54 | Hospitalist Progress Note ---
Date of Service September 23, 2023 Assessment & Plan (1) Closed fracture of left hip: Plan: This is a 73-year-old female with PMH of hypertension, depression with anxiety, hyperlipidemia, hypothyroidism, prediabetes and other medical problems listed below who presents from home after a fall and was found to have an acute displaced left femoral neck fracture. Mechanical fall at home Femur XR with acute displaced left femoral neck fracture EKG with sinus rhythm with occasional PVCs, non- specific T wave abn in lateral leads, no acute ST changes CXR with cardiomegaly with no active disease in the chest Status post left total hip arthroplasty on September 22, 2023 Continue PT OT Aspirin twice daily for DVT prophylaxis Pain control Bowel regimen Possible discharge home in next few days Chest x-ray ordered as patient is requiring 2 L of oxygen by nasal cannula; personally reviewed. No acute finding Encourage incentive spirometry (2) HTN (hypertension): Plan: Chronic, stable. Hold HCTZ in AM. Continue enalapril (3) Depression with anxiety: Plan: Chronic, stable. Continue paroxetine, rarely uses her home PRN ativan (4) Hyperlipidemia: Plan: Continue statin (5) Hypothyroidism: Plan: Continue levothyroxine DVT Ppx: Aspirin twice daily Code status:FULL PCP: Hollie Dispo: Admitted to med/surg Please note the above document was generated using voice recognition software. It may contain grammatical, syntax or spelling errors. Any formal questions or concerns about the content, text or information contained within the body of this dictation should be directly addressed to the provider for clarification Admission and Anticipated Discharge Date Admission Date: September 21, 2023 Subjective Patient seen and examined at bedside. She is sitting up on the chair; not in any distress. She is on 2 L of oxygen by nasal cannula. Review of Systems Review of Systems: All systems reviewed & are unremarkable except as noted in Subjective Physical Exam Physical Exam: Constitutional: WD/WN, vitals as above, NAD, sitting up in bed, pleasant, conversing easily Respiratory: normal respiratory effort, lungs clear to auscultation, no wheeze, rales, rhonchi. Normal insp/exp effort, no accessory muscle use Cardiovascular: RRR, no murmur, no edema Vessels: no JVD or carotid bruit Chest: normal inspection of chest Abdomen: normal bowel sounds, soft, nontender, no hepatosplenomegaly Musculoskeletal: Dressing in place in left hip; mild swelling present Skin: no rashes, warm and dry normal turgor Neurologic: PERRL, EOMI, accommodation nl, no face palsy, no dysarthria CN's II- XI intact bilaterally and moves all extremities Psychiatric: A+Ox3, euthymic affect Results & Data Results & Data Vital Signs (Past 12 Hours) Vital Signs Temp Pulse Resp BP Pulse Ox O2 Del Method O2 Flow Rate 09/23/23 14:33 36.7 C 85 18 113/64 93 Nasal Cannula 2 09/23/23 08:09 37.1 C 94 H 18 136/83 95 Nasal Cannula 2 (1) Closed fracture of left hip Encounter type: initial encounter Qualified Code(s): S72.002A - Fracture of unspecified part of neck of left femur, initial encounter for closed fracture
[2023-09-23] MEDS: oxyCODONE HCL IR 5 MG TAB (IMMEDIATE RELEASE) PO PRN (20:08)
[2023-09-24 06:13] LABS: Basophils # (auto) 0.02 K/uL (0.00-0.20); Basophils % (auto) 0.2 %; Eosinophils # (auto) 0.01 K/uL (0.00-0.50); Eosinophils % (auto) 0.1 %; Hematocrit (blood only) 29.7 % (37.0-47.0); Hemoglobin 10.2 g/dl (12.0-16.0); Immature Granulocytes # (auto) 0.11 K/uL (0.01-0.20); Immature Granulocytes % (auto) 0.8 %; Lymphocytes # (auto) 0.91 K/uL (1.20-3.40); Lymphocytes % (auto) 6.9 %; Mean Corpuscular Hgb Conc 34.3 g/dL (32.0-36.0); Mean Corpuscular Volume 90.3 fL (80.0-100.0); Mean Platelet Volume 9.7 fL (9.4-12.4); Monocytes % (auto) 8.4 %; Neutrophils % (auto) 83.6 %; Platelet Count 178 K/uL (130-400); RDW Coefficient of Variation 13.5 % (11.5-14.5); RDW Standard Deviation 44.6 fL (36.4-46.3); Red Blood Count 3.29 M/uL (4.20-5.40); White Blood Count 13.15 K/ul (4.8-10.8)
[2023-09-24 06:34] LABS: BUN Creatinine Ratio 30.7 (10-20); Calcium 8.7 mg/dl (8.6-10.3); Creatinine Clr Calc Pharmacy 66.8 ml/min; Est GFR (African American) 90.4 ml/min; Potassium 4.7 mmol/L (3.5-5.1)
--- NOTE | 2023-09-24 07:48 | Surgery Progress Note ---
Date of Service September 24, 2023 Assessment & Plan (1) Status post left hip replacement: Plan: 73-year-old female postop day 2 from a left hip replacement done for fracture. Orthopedically she is doing well. Pain seems to be well-controlled. Hips located. She is neurologically intact. Appears she is getting around pretty well. Plan: 1. DVT prophylaxis including thigh-high teds, SCDs, recommend a baby aspirin twice a day for 6 weeks. 2. PT/OT. Weight-bear as tolerated left total hip protocol. She does [place] hip precautions for 6 weeks. 3. Pain control doing okay with current pain regimen. 4. Wound management. She got a Prevena VAC in place. She will need to leave that on for total of 7 days. 5. Disposition she is orthopedically okay for discharge anytime. And the benefit for her to have home health. I need to see her back 2 to 3 weeks out from surgery date. Any orthopedic questions can be directed at [phone] Admission and Anticipated Discharge Date Admission Date: September 21, 2023 Subjective 73-year-old female postop day 2 from a left hybrid total hip replacement done for fracture. She is doing quite well this morning. Denies much in the way of pain. As she is adamant about going home today. Denies any chest pain or shortness of breath. Not feeling dizzy or lightheaded. Says she is getting around quite well and walking. Physical Exam Physical Exam: Examination of left hip reveals patient to be lying in bed looks comfortable. The dressings clean dry and intact. Leg lengths are equal. She can dorsiflex and plantarflex her foot appropriately. She is neurologically intact. Results & Data Vital Signs (Past 12 Hours) Vital Signs Temp Pulse Pulse Resp BP Pulse Ox O2 Del Method 09/24/23 07:36 36.5 C 77 16 129/76 94 Nasal Cannula 09/24/23 05:44 94 Room Air 09/24/23 05:00 36.1 C L 77 18 97 Room Air 09/24/23 01:00 36.6 C 80 16 98 Room Air 09/23/23 21:02 95 Nasal Cannula 09/23/23 20:22 97 09/23/23 20:19 Room Air O2 Flow Rate 09/24/23 07:36 2 09/24/23 05:44 09/24/23 05:00 09/24/23 01:00 2 09/23/23 21:02 2 09/23/23 20:22 2 09/23/23 20:19 Laboratory Results Hemoglobin 10.2. Hematocrit 29.7. PG Care Time/CCT Total # of Minutes Spent Total Time Spent with Patient: Total time spent is greater than 50% in coordination of care (as documented) at patient's floor/unit and/or counseling patient: Coding Level of Care Code 47445 Post Operative Follow-Up Diagnoses Status post left hip replacement Z96.642
[2023-09-24] MEDS: MAGNESIUM HYDROXIDE SUSP 30 ML UDC PO PRN (07:59)
[2023-09-24] MEDS: bisacodyL 10 MG SUPP PR PRN (10:25)
--- NOTE | 2023-09-24 15:30 | Hospitalist Progress Note ---
Date of Service September 24, 2023 Assessment & Plan (1) Closed fracture of left hip: Plan: This is a 73-year-old female with PMH of hypertension, depression with anxiety, hyperlipidemia, hypothyroidism, prediabetes and other medical problems listed below who presents from home after a fall and was found to have an acute displaced left femoral neck fracture. Mechanical fall at home Femur XR with acute displaced left femoral neck fracture EKG with sinus rhythm with occasional PVCs, non- specific T wave abn in lateral leads, no acute ST changes CXR with cardiomegaly with no active disease in the chest Status post left total hip arthroplasty on September 22, 2023 Continue PT OT Aspirin twice daily for DVT prophylaxis Pain control Bowel regimen Possible discharge home in next few days Chest x-ray ordered as patient is requiring 2 L of oxygen by nasal cannula; personally reviewed. No acute finding Encourage incentive spirometry Awaiting set up for home health prior to discharge. (2) HTN (hypertension): Plan: Chronic, stable. Hold HCTZ in AM. Continue enalapril (3) Depression with anxiety: Plan: Chronic, stable. Continue paroxetine, rarely uses her home PRN ativan (4) Hyperlipidemia: Plan: Continue statin (5) Hypothyroidism: Plan: Continue levothyroxine DVT Ppx: Aspirin twice daily Code status:FULL PCP: Hollie Dispo: Admitted to med/surg for hip fracture; underwent surgery. Awaiting home PT OT arrangement prior to discharge. Case management on board. Please note the above document was generated using voice recognition software. It may contain grammatical, syntax or spelling errors. Any formal questions or concerns about the content, text or information contained within the body of this dictation should be directly addressed to the provider for clarification Admission and Anticipated Discharge Date Admission Date: September 21, 2023 Subjective Patient seen and examined at bedside. Comfortable; not in distress. Denies fever, chills, chest pain, shortness of breath, abdominal pain or urinary symptoms. No significant overnight events No bowel movement yet Review of Systems Review of Systems: All systems reviewed & are unremarkable except as noted in Subjective Physical Exam Physical Exam: Constitutional: WD/WN, vitals as above, NAD, sitting up in bed, pleasant, conversing easily Respiratory: normal respiratory effort, lungs clear to auscultation, no wheeze, rales, rhonchi. Normal insp/exp effort, no accessory muscle use Cardiovascular: RRR, no murmur, no edema Vessels: no JVD or carotid bruit Chest: normal inspection of chest Abdomen: normal bowel sounds, soft, nontender, no hepatosplenomegaly Musculoskeletal: Dressing in place in left hip; mild swelling present Skin: no rashes, warm and dry normal turgor Neurologic: PERRL, EOMI, accommodation nl, no face palsy, no dysarthria CN's II- XI intact bilaterally and moves all extremities Psychiatric: A+Ox3, euthymic affect Results & Data Results & Data Vital Signs (Past 12 Hours) Vital Signs Temp Pulse Pulse Resp BP BP Pulse Ox 09/24/23 15:17 36.3 C L 75 16 158/73 H 95 09/24/23 07:36 36.5 C 77 16 129/76 94 09/24/23 05:44 94 09/24/23 05:00 36.1 C L 77 18 97 O2 Del Method O2 Flow Rate 09/24/23 15:17 Room Air 09/24/23 07:36 Nasal Cannula 2 09/24/23 05:44 Room Air 09/24/23 05:00 Room Air (1) Closed fracture of left hip Encounter type: initial encounter Qualified Code(s): S72.002A - Fracture of unspecified part of neck of left femur, initial encounter for closed fracture
[2023-09-24] MEDS ORDERED: POLYETHYLENE (MIRALAX) 17 GM PACK PO SCH (18:00)
[2023-09-25 08:12] LABS: Basophils # (auto) 0.03 K/uL (0.00-0.20); Basophils % (auto) 0.3 %; Eosinophils # (auto) 0.25 K/uL (0.00-0.50); Eosinophils % (auto) 2.2 %; Hematocrit (blood only) 29.4 % (37.0-47.0); Hemoglobin 9.8 g/dl (12.0-16.0); Immature Granulocytes # (auto) 0.17 K/uL (0.01-0.20); Immature Granulocytes % (auto) 1.5 %; Lymphocytes # (auto) 1.94 K/uL (1.20-3.40); Lymphocytes % (auto) 17.4 %; Mean Corpuscular Hemoglobin 30.2 pg (25.0-34.0); Mean Corpuscular Hgb Conc 33.3 g/dL (32.0-36.0); Mean Corpuscular Volume 90.5 fL (80.0-100.0); Mean Platelet Volume 9.2 fL (9.4-12.4); Monocytes # (auto) 1.07 K/uL (0.11-0.59); Monocytes % (auto) 9.6 %; Neutrophils # (auto) 7.71 K/uL (1.40-6.50); Platelet Count 202 K/uL (130-400); RDW Coefficient of Variation 13.9 % (11.5-14.5); RDW Standard Deviation 46.2 fL (36.4-46.3); Red Blood Count 3.25 M/uL (4.20-5.40); White Blood Count 11.17 K/ul (4.8-10.8)
[2023-09-25 08:34] LABS: BUN Creatinine Ratio 28.6 (10-20); Calcium 8.4 mg/dl (8.6-10.3); Creatinine Clr Calc Pharmacy 65.1 ml/min; Est GFR (African American) 87.5 ml/min; Est GFR (Non-African American) 75.5 ml/min; Potassium 4.5 mmol/L (3.5-5.1)
--- NOTE | 2023-09-25 13:51 | Discharge Summary ---
Date of Service September 25, 2023 Admission HPI Per Admitting Provider This is a 73-year-old female with PMH of hypertension, depression with anxiety, hyperlipidemia, hypothyroidism, prediabetes and other medical problems listed below who presents from home after a fall. After standing up this morning, patient fell over and landed on her left side. Denies any head trauma or LOC. Was unable to bear weight on her leg and resorted to crawling around on the floor. Then alerted her and arrived here by EMS. Was initially in a lot of pain but improved with IV analgesics in the ED and is now comfortable at rest. Denies any history of bleeding issues. Denies previous history of fractures. Admission Exam Per Admitting Provider Vitals signs as noted above General Appearance:Obese, no apparent distress Head: normocephalic, Atraumatic Eyes: normal inspection, EOMI Neck: supple, Trachea midline Respiratory/Chest: Normal breath sounds, CTA, No accessory muscle use Cardiovascular: S1, S2, No murmur Abdomen/GI:Soft, Non tender, Bowel sounds present Extremities/Musculoskeletal:normal inspection, no edema, Left hip tender, decreased ROM Neurologic/Psych:AAOX3, grossly no focal neurological deficits Skin: normal color, warm Principal Diagnosis Fracture of left hip status post left total hip arthroplasty on September 22, 2023 Discharge Exam Constitutional: WD/WN, vitals as above, NAD, sitting up in bed, pleasant, conversing easily Respiratory: normal respiratory effort, lungs clear to auscultation, no wheeze, rales, rhonchi. Normal insp/exp effort, no accessory muscle use Cardiovascular: RRR, no murmur, no edema Vessels: no JVD or carotid bruit Chest: normal inspection of chest Abdomen: normal bowel sounds, soft, nontender, no hepatosplenomegaly Musculoskeletal: Dressing in place in left hip; mild swelling present Skin: no rashes, warm and dry normal turgor Neurologic: PERRL, EOMI, accommodation nl, no face palsy, no dysarthria CN's II- XI intact bilaterally and moves all extremities Psychiatric: A+Ox3, euthymic affect Discharge Data Allergies Allergy/AdvReac Type Severity Reaction Status Date / Time latex Allergy Mild Rash Verified 09/22/23 14:12 Consultations 09/21/23 16:31 Consult Orthopedic Surgery Routine ED Decision to Admit Stat 09/21/23 19:10 Consult Anesthesiology Routine Procedures Performed Operation Date: 09/22/23 07:05 Actual Procedures p Left Total Hip Arthroplasty Cemented(Left) - Guanakito Johns MD Hospital Course (1) Closed fracture of left hip: (2) HTN (hypertension): (3) Depression with anxiety: (4) Hyperlipidemia: (5) Hypothyroidism: Plan This is a 73-year-old female with PMH of hypertension, depression with anxiety, hyperlipidemia, hypothyroidism, prediabetes and other medical problems listed below who presents from home after a fall and was found to have an acute displaced left femoral neck fracture. Mechanical fall at home Femur XR with acute displaced left femoral neck fracture EKG with sinus rhythm with occasional PVCs, non- specific T wave abn in lateral leads, no acute ST changes CXR with cardiomegaly with no active disease in the chest Status post left total hip arthroplasty on September 22, 2023 Patient underwent PT OT evaluation after the surgery; She was started on aspirin twice daily for DVT prophylaxis No significant postoperative events Patient was discharged home with home health. Patient to follow-up with PCP and Dr. Johns as outpatient Please note the above document was generated using voice recognition software. It may contain grammatical, syntax or spelling errors. Any formal questions or concerns about the content, text or information contained within the body of this dictation should be directly addressed to the provider for clarification Total Time Total Time Spent Total Time Spent (In Minutes): 35 Total Time Includes: Examination of the Patient, Discharge Planning, Medication Reconciliation, Communication With Other Providers and Other Discharge Plan Discharge Items Patient Disposition: Home - Home Health Services Reason For Visit: FALL, L HIP FRACTURE Discharge Diagnosis: Left Hip REplacement for fracture Activity: Per Instructions section Activity Comment: Follow/Obey hip precautions at all times. Weightbearing: Full weightbearing Weightbearing Comment: Weightbear as tolerated obeying hip precautions at all times. Non-emergency contact: Surgeon Call non-emergency contact if: you have any medication questions and your symptoms worsen Follow-up/Referrals: Guanakito Johns MD [Physician] - 10/16/23 8:30 am () Nadira Ball MD [Primary Care Provider] - 09/28/23 11:20 am (Date & Time 09/28/2023 11:20 AM Provider Nadira Ball MD Department General Internal Medicine [facility] ) Diet: Regular Addtl Attending Provider Instructions: You underwent surgery by Dr. Johns on September 22, 2023 for left hip fracture. Please take aspirin 81 mg twice a day for 6 weeks (42 days) to prevent blood clots in your bilateral lower extremity. After 6 weeks, you can go back to once a day regimen. ACTIVITY RECOMMENDATIONS: Physical Therapy: * Aggressive physical therapy is not usually needed. You will learn to take care of yourself safely and walk. * Follow the "Hip Precautions Instructions." * In some cases, the social services manager at the hospital will arrange to have a therapist come to your house for the first couple of weeks to help you learn these skills. * You need to practice on your own or with the help of a family member as needed. * When you learn these skills, most of the therapy can be done on your own. Home Exercise: * You were shown a series of exercises in the hospital. Do these exercises three to four times each day including the exercises you were shown in physical therapy. Walking: * Get up and walk several times each day. For the first four weeks, try not to stand or walk for more than one hour at a time. If you do stand or walk for more than one hour, you will not hurt anything, but your leg will likely swell. * As you feel comfortable, you may change from the walker or crutches to a cane and then to independent walking. MEDICATIONS: New Medicine: * You will likely be taking one or more of these medicines: 1. oxycodone- Take, as directed, when you need it, every 12 hours to control your pain. 2. Aspirin - Thins your blood to lessen the chance of forming a blood clot. * The most common side effects of pain medicine and iron are nausea and constipation. If nausea or constipation is too much of a problem or if you have any questions about your new medicines or doses, call [facility] at . We will try to help you manage these issues. "VERY IMPORTANT TO READ AND REVIEW" Pain: * The immediate post-operative period after hip replacement surgery is often quite painful. * You are given a prescription for pain medicine. You should take it, as directed, when you need it, especially before physical therapy and before going to bed. Pain that interferes with sleep is very common and can last several months. * You will likely need pain medicine for the first two to four weeks. It will not stop all of the pain. The pain will lessen and as you feel better, you may change to milder pain medicine such as Tylenol. * The most common side effects of pain medicine are nausea and constipation, so don't take more than you need. SPECIAL CARE INSTRUCTIONS: TEDs/Elastic Stockings: * The white elastic stockings help limit swelling and prevent blood clots from forming in your legs. The more you wear them, the more they work. * Wear them for six weeks. Incision Site Care: * Remove dressing postoperative day 2 and then shower. Keep direct shower pressure off the incision site. * After showering, cover azucena with dry gauze and change daily or more frequently if the dressing is getting saturated with drainage. * May completely stop using bandage if wound is dry and no drainage * [place] are removed between 2 and 3 weeks post-op. If your follow-up appointment is made before 2 weeks, please have your appointment re- scheduled. It is too early to remove the azucena. Prevention of Infection: * Take antibiotics one hour before any dental cleaning, dental work, urological procedure, gastrointestinal procedure or any invasive surgery in order to prevent your new joint from getting infected. * You may get the antibiotics from the doctor performing the procedure or you may call our office at before and we will call in a prescription to the pharmacy of your choice. Things to Watch For: * Drainage from the incision site that occurs more than one week after your surgery. * Severely increased leg pain or swelling. * Increased redness at the incision site. * Fever above 102 degrees Fahrenheit. * Unusual chest pain or shortness of breath. * Unusual pain or burning with urination. Call [facility] at with any of the above problems or if you have any questions about your medicines or recovery. FOLLOW UP VISIT: Make an appointment to see your doctor for approximately two weeks after surgery for a progress check and staple removal by calling the office at . Pending Studies at Discharge: No Stand-Alone Forms: My [facility], Pain - Opioid Pain Management Medications and DC Order Prescriptions: New oxycodone 5 mg capsule 5 mg PO BID PRN (Reason: pain) Qty: 10 0RF Continued paroxetine HCl 10 mg tablet 10 mg PO DAILY atorvastatin 20 mg Tablet 20 mg PO DAILY enalapril maleate 5 mg Tablet 5 mg PO DAILY tolterodine 4 mg Capsule,Extended Release 24hr 4 mg PO DAILY lorazepam 0.5 mg Tablet 0.5 mg PO TID PRN (Reason: Anxiety) cholecalciferol (vitamin D3) 25 mcg (1,000 unit) Tablet 25 mcg PO DAILY hydrochlorothiazide 12.5 mg tablet 12.5 mg PO DAILY Changed aspirin 81 mg Capsule 81 mg PO BID 42 Days Qty: 84 0RF Discharge Orders: Discharge Order (Routine); Ordered 09/25/23 Ordered By: Edmar Romero/Other Patient Handouts: Prediabetes, Hip Precautions, 5 Steps for Eating Healthier, Hip Total Replacement Dc Admission Data Admit Date/Time: 09/21/23 17:30 Attending Provider: Edmar Espinoza Admit Provider: Jamie Wooten Primary Care Provider: Nadira Ball Other Providers: Jamie Wooten; Guanakito Johns; Michael Stanley; [facility] Other Interventions: Discharge Summary Assessment (RN) Last Done: 09/25/23 11:57
== END 2023-09-25 12:57 | disposition home health service (06) | DRG 522 ==
LOC: ED 14:31 → SUATTDRO 17:30 → EDINP 17:30 → 3W 20:39
DX: W18.39XA Other fall on same level, initial encounter; M80.052A Age-related osteoporosis with current pathological fracture, left femur, initial encounter for fracture; E78.5 Hyperlipidemia, unspecified; E03.9 Hypothyroidism, unspecified; F32.A Depression, unspecified; Y92.009 Unspecified place in unspecified non-institutional (private) residence as the place of occurrence of the external cause; Y99.8 Other external cause status; Z91.040 Latex allergy status; Z79.899 Other long term (current) drug therapy; Z79.82 Long term (current) use of aspirin; R73.03 Prediabetes; F41.9 Anxiety disorder, unspecified; D62 Acute posthemorrhagic anemia; I10 Essential (primary) hypertension; Z83.3 Family history of diabetes mellitus